=== PATIENT | female | born 1940 | race Caucasian/White ===

== ENCOUNTER 2016-05-13 19:19 | Inpatient (IN) | payer MEDICARE ==
[~2016-05-13] VITALS: Ht 170.2 cm; Wt 84.2 kg
[2016-05-13] VITALS (7 sets, daily range): BP systolic 81–107; BP diastolic 53–68; PULSE 82–94; RESP 18–20; TEMP 97.9; O2SAT 95–100
[~2016-05-13 19:19] MED LIST: ASPI81TA82 PO; ATOR40TA PO; DONE5TAB14 PO; LACT PO; MACR100C PO; NAME5TAB2 PO; PRIN5TAB PO; QUET100 PO
[2016-05-13] MEDS ORDERED: SODIUM CHLOR 0.9% 1000 ML INJ 1,000 ML IV ONE ×2 (19:25)
[2016-05-13] MEDS ORDERED: SERO100T PO (19:30)
[2016-05-13] MEDS ORDERED: ASPI81CH37 CHEW (19:30)
[2016-05-13] MEDS ORDERED: MELO7.5T4 PO (19:30)
[2016-05-13] MEDS ORDERED: ARIC10TA PO (19:30)
[2016-05-13] MEDS ORDERED: LISI-519 PO (19:30)
[2016-05-13] MEDS ORDERED: NAME10TA PO (19:30)
[2016-05-13] MEDS ORDERED: HYDR-3516 PO (19:30)
[2016-05-13] MEDS ORDERED: cefTRIAXone INJ 1,000 MG in SODIUM CHLORIDE 0.9% INJ 100 ML IV ONE (19:30)
[2016-05-13 19:47] LABS: AUTOMATED NEUTROPHIL # 4.7 TH/MM3 (1.8-7.7); BASOPHIL # 0.1 TH/MM3 (0-0.2); BASOPHIL % 1.1 % (0.0-2.0); EOSINOPHIL # 0.1 TH/MM3 (0-0.4); EOSINOPHIL % 1.6 % (0.0-4.0); HEMATOCRIT 37.4 % (35.0-46.0); HEMO FLAGS DIFF FINAL; LYMPH % 22.3 % (9.0-44.0); LYMPHOCYTE # 1.6 TH/MM3 (1.0-4.8); MEAN CELL VOLUME 81.3 FL (80.0-100.0); MEAN CORPUSCULAR HEMOGLOBIN 26.3 PG (27.0-34.0); MEAN CORPUSCULAR HGB CONC 32.4 % (32.0-36.0); MONO % 9.6 % (0.0-8.0); NEUT % 65.4 % (16.0-70.0); PLATELET COUNT 283 TH/MM3 (150-450); RED CELL DISTRIBUTION WIDTH 16.1 % (11.6-17.2); WHITE BLOOD COUNT 7.2 TH/MM3 (4.0-11.0)
[2016-05-13 19:59] LABS: BLOOD, URINE NEG (NEG); GLUCOSE,URINE NEG (NEG); KETONE, URINE NEG (NEG); NITRITE,URINE NEG (NEG); PH, URINE 5.5 (5.0-8.5)
[2016-05-13 20:04] LABS: CHLORIDE 106 MEQ/L (98-107); POTASSIUM 4.8 MEQ/L (3.5-5.1); SODIUM (NA) 142 MEQ/L (136-145)
[2016-05-13 20:07] LABS: ANION GAP 10 MEQ/L (5-15); BICARBONATE 26.3 MEQ/L (21.0-32.0); BLOOD UREA NITROGEN 28 MG/DL (7-18)
[2016-05-13 20:07] LABS: URINE COLOR YELLOW (YELLW/STRAW)
[2016-05-13 20:09] LABS: MUCUS URINE FEW /lpf (OCC)
[2016-05-13 20:10] LABS: ALT (GPT) 23 U/L (10-53); APTT (PATIENT) 23.8 SEC (24.3-30.1); AST (GOT) 25 U/L (15-37); PROTHROMBIN TIME - PATIENT 10.8 SEC (9.8-11.6)
[2016-05-13 20:10] LABS: BACTERIA, URINE FEW /hpf; COMMENT (UR) CATH-CULT NOT IND; CULTURE IF INDICATED CATH CULTURE NOT IND; RBC, URINE 0-3 /hpf (0-3); WBC, URINE 0-2 /hpf (0-5)
[2016-05-13 20:11] LABS: GLOMERULAR FILTRATION RATE 48 ML/MIN (>89)
[2016-05-13 20:12] LABS: TOTAL BILIRUBIN ADULT 0.2 MG/DL (0.2-1.0)
[2016-05-13 20:13] LABS: ALKALINE PHOSPHATASE 117 U/L (45-117)
--- NOTE | 2016-05-13 20:33 | RADHPO ---
EXAM DATE/TIME: 05/13/2016 20:11 [facility] COMPARISON: CHEST SINGLE AP, February 27, 2016, 14:58. INDICATIONS : Fever. MEDICAL HISTORY : Hypertension. SURGICAL HISTORY : None. ENCOUNTER: Initial ACUITY: 1 day PAIN SCORE: 0/10 LOCATION: Bilateral chest FINDINGS: There is linear atelectasis at the left lung base. Cardiomegaly is noted. No effusion or consolidatio n. Osseous structures are intact. CONCLUSION: Left basilar atelectasis. Feng Pollard MD on May 13, 2016 at 20:31 Board Certified Radiologist. This report was verified electronically.
[2016-05-13] MEDS ORDERED: AZITHROMYCIN INJ 500 MG in SODIUM CHLOR 0.9% 250 ML INJ 250 ML IV ONE (21:00)
--- NOTE | 2016-05-13 21:15 | PD ---
HPI Chief Complaint: General Weakness Time Seen by Provider: 19:24 Travel History International Travel<30 days: No Contact w/Intl Traveler<30days: No Traveled to known affect area: No History of Present Illness HPI Patient is a 75 year old female who comes in after a syncopal episode today. Per EMS her called when she came unresponsive while he was trying to help her out of the chair. She never fell or hit her head. EMS reports that her blood pressure was originally 72 over palp. Patient has dementia, and currently has no complaints. She is oriented to person himself, but does not know where she is. Her states that she seemed to be in her normal state of health until she suddenly went unresponsive tonight. He does describe an episode in February that was similar and she was found to have a urinary tract infection at that time. PFSH Past Medical History Hx Anticoagulant Therapy: Yes (81 MG ASA) Anxiety: No Depression: No Cardiovascular Problems: Yes (HTN) High Cholesterol: Yes Dementia: Yes Diminished Hearing: No Endocrine: No Genitourinary: No Hypertension: Yes Immune Disorder: No Musculoskeletal: No Neurologic: No Reproductive: No Respiratory: No Menopausal: Yes Past Surgical History Oral Surgery: Yes (TONSILLECTOMY) Other Surgery: Yes Social History Alcohol Use: Yes (WINE SOMETIMES) Tobacco Use: No (NEVER) Substance Use: No Allergies-Medications (Allergen,Severity, Reaction): Coded Allergies: No Known Allergies (Verified , 05/13/16) Reported Meds & Prescriptions Reported Meds & Active Scripts Active Reported Seroquel (Quetiapine Fumarate) 100 Mg Tab 100 Mg PO BID Hydrocodone-Acetaminophen 5-325 mg Tab 1 Tab PO TID PRN Meloxicam 7.5 Mg Tab 7.5 Mg PO BID Lisinopril 5 Mg Tab 5 Mg PO DAILY Aspirin Low Dose (Aspirin) 81 Mg Chew 81 Mg CHEW DAILY Namenda (Memantine) 10 Mg Tab 10 Mg PO BID Aricept (Donepezil) 10 Mg Tab 10 Mg PO HS Review of Systems ROS Limitations: Clinical Condition, Altered Mental Status Physical Exam Narrative GENERAL: Awake and alert, in no acute distress. SKIN: Warm and dry. HEAD: Atraumatic. Normocephalic. EYES: Pupils equal and round. No scleral icterus. Extraocular movements intact. ENT: Mucous membranes pink and moist. NECK: Trachea midline. No JVD. CARDIOVASCULAR: Regular rate and rhythm. No murmur appreciated. RESPIRATORY: No accessory muscle use. Clear to auscultation. Breath sounds equal bilaterally. GASTROINTESTINAL: Abdomen soft, non-tender, nondistended. MUSCULOSKELETAL: No obvious deformities. No clubbing. No cyanosis. No edema. NEUROLOGICAL: Awake and alert, oriented to person only. No obvious cranial nerve deficits. Motor grossly within normal limits. Normal speech. Data Data Last Documented VS Vital Signs Date Time Temp Pulse Resp B/P Pulse Ox O2 Delivery O2 Flow Rate FiO2 05/13/16 21:00 89 18 104/62 99 Nasal Cannula 2 05/13/16 19:25 97.9 Orders Electrocardiogram (05/13/16:25) Complete Blood Count With Diff (05/13/16:25) Comprehensive Metabolic Panel (05/13/16:25) Prothrombin Time / Inr (Pt) (05/13/16:25) Act Partial Throm Time (Ptt) (05/13/16 19:25) Lactic Acid Sepsis Protocol (05/13/16 19:25) Troponin I (05/13/16 19:25) Urinalysis - C+S If Indicated (05/13/16 19:25) Ua Includes Microscopic (05/13/16 19:25) Blood Culture (05/13/16 19:25) Chest, Single Ap (05/13/16:25) Blood Glucose (05/13/16 19:25) Ecg Monitoring (05/13/16 19:25) Iv Access Insert/Monitor (05/13/16 19:25) Oximetry (05/13/16 19:25) Oxygen Administration (05/13/16 19:25) Sodium Chlor 0.9% 1000 Ml Inj (Ns 1000 M (05/13/16 19:25) Sodium Chlor 0.9% 1000 Ml Inj (Ns 1000 M (05/13/16 19:25) Ceftriaxone Inj (Rocephin Inj) (05/13/16 19:30) Cath For Specimen (05/13/16 19:27) Azithromycin Inj (Zithromax Inj) (05/13/16 21:00) Admit Order (Ed Use Only) (05/13/16 ) Labs Laboratory Tests Test 05/13/16 05/13/16 05/13/16 19:25 19:35 19:40 White Blood Count 7.2 TH/MM3 Red Blood Count 4.60 MIL/MM3 Hemoglobin 12.1 GM/DL Hematocrit 37.4 % Mean Corpuscular Volume 81.3 FL Mean Corpuscular Hemoglobin 26.3 PG Mean Corpuscular Hemoglobin 32.4 % Concent Red Cell Distribution Width 16.1 % Platelet Count 283 TH/MM3 Mean Platelet Volume 8.0 FL Neutrophils (%) (Auto) 65.4 % Lymphocytes (%) (Auto) 22.3 % Monocytes (%) (Auto) 9.6 % Eosinophils (%) (Auto) 1.6 % Basophils (%) (Auto) 1.1 % Neutrophils # (Auto) 4.7 TH/MM3 Lymphocytes # (Auto) 1.6 TH/MM3 Monocytes # (Auto) 0.7 TH/MM3 Eosinophils # (Auto) 0.1 TH/MM3 Basophils # (Auto) 0.1 TH/MM3 CBC Comment DIFF FINAL Differential Comment Prothrombin Time 10.8 SEC Prothromb Time International 1.0 RATIO Ratio Activated Partial 23.8 SEC Thromboplast Time Sodium Level 142 MEQ/L Potassium Level 4.8 MEQ/L Chloride Level 106 MEQ/L Carbon Dioxide Level 26.3 MEQ/L Anion Gap 10 MEQ/L Blood Urea Nitrogen 28 MG/DL Creatinine 1.10 MG/DL Estimat Glomerular Filtration 48 ML/MIN Rate Random Glucose 97 MG/DL Lactic Acid Level 2.3 mmol/L Calcium Level 8.6 MG/DL Total Bilirubin 0.2 MG/DL Aspartate Amino Transf 25 U/L (AST/SGOT) Alanine Aminotransferase 23 U/L (ALT/SGPT) Alkaline Phosphatase 117 U/L Troponin I LESS THAN 0.02 NG/ML Total Protein 6.9 GM/DL Albumin 3.1 GM/DL Urine Color YELLOW Urine Turbidity CLEAR Urine pH 5.5 Urine Specific [place] 1.025 Urine Protein TRACE mg/dL Urine Glucose (UA) NEG mg/dL Urine Ketones NEG mg/dL Urine Occult Blood NEG Urine Nitrite NEG Urine Bilirubin NEG Urine Leukocyte Esterase NEG Urine RBC 0-3 /hpf Urine WBC 0-2 /hpf Urine Bacteria FEW /hpf Urine Hyaline Casts 6-9 /lpf Urine Fine Granular Casts 0-2 /lpf Urine Mucus FEW /lpf Microscopic Urinalysis Comment CATH-CULT NOT IND MDM Medical Decision Making Medical Screen Exam Complete: Yes Emergency Medical Condition: Yes Medical Record Reviewed: Yes Interpretation(s) ECG shows normal sinus rhythm at 85, occasional PVCs, no ST elevation or depression. Differential Diagnosis Urosepsis versus pneumonia versus syncope versus ACS Narrative Course Patient is a 75-year-old female who comes in after syncopal episode. Patient is demented and cannot provide history. She is immediately connected to the athletic monitor. Found to be hypotensive. 2 IVs established. Labs sent. Patient given 2 L of fluids. Started on Rocephin. Labs show a lactic acid of 2.3. Urinalysis concerning for some white blood cells and bacteria. X-ray shows atelectasis. Azithromycin added to cover for pneumonia as well. Patient's blood pressure responded to the fluids and improved. Patient will be admitted for further management. Diagnosis Primary Impression: Sepsis Qualified Code: A41.9 - Sepsis, due to unspecified organism Additional Impressions: Syncope Qualified Code: R55 - Syncope, unspecified syncope type Hypotension Qualified Code: I95.89 - Other specified hypotension Admitting Information Admitting Physician Requests: Admit Karo Edouard MD May 13, 2016 21:15 Karo Edouard MD May 13, 2016 21:15
[2016-05-13] MEDS ORDERED: NALOXONE HCL 0.4 MG/ML AMP IV PRN (21:30)
[2016-05-13] MEDS ORDERED: SODIUM CHLORIDE 0.9% FLUSH 5 ML FLUSH FLUSH PRN (21:30)
[2016-05-13] MEDS: SODIUM CHLOR 0.9% 1000 ML INJ 1,000 ML IV SCH (21:37)
[2016-05-13 21:41] LABS: LACTIC ACID GHOST NOT REPORTABLE
[2016-05-14] VITALS: BP 104/82; PULSE 83; PULSE 91; RESP 19; TEMP 96.8; O2SAT 97
[2016-05-14 02:20] LABS: CREATINE KINASE 51 U/L (26-192)
[2016-05-14 03:59] VITALS: BP_SYST 110; BP_SYST 123; BP_DIAS 67; BP_DIAS 72; PULSE 71; PULSE 76; RESP 16; RESP 18; TEMP 96.8; TEMP 97.5; O2SAT 92; O2SAT 96
[2016-05-14 06:39] LABS: AUTOMATED NEUTROPHIL # 5.1 TH/MM3 (1.8-7.7); BASOPHIL % 0.6 % (0.0-2.0); EOSINOPHIL # 0.1 TH/MM3 (0-0.4); EOSINOPHIL % 1.8 % (0.0-4.0); HEMATOCRIT 36.1 % (35.0-46.0); HEMO FLAGS DIFF FINAL; LYMPH % 23.9 % (9.0-44.0); LYMPHOCYTE # 1.8 TH/MM3 (1.0-4.8); MEAN CELL VOLUME 81.2 FL (80.0-100.0); MEAN CORPUSCULAR HEMOGLOBIN 26.3 PG (27.0-34.0); MEAN CORPUSCULAR HGB CONC 32.4 % (32.0-36.0); MONO % 8.5 % (0.0-8.0); NEUT % 65.2 % (16.0-70.0); PLATELET COUNT 276 TH/MM3 (150-450); RED BLOOD COUNT 4.45 MIL/MM3 (4.00-5.30); RED CELL DISTRIBUTION WIDTH 15.4 % (11.6-17.2); WHITE BLOOD COUNT 7.7 TH/MM3 (4.0-11.0)
[2016-05-14 07:18] LABS: BICARBONATE 23.8 MEQ/L (21.0-32.0); POTASSIUM 3.8 MEQ/L (3.5-5.1)
[2016-05-14] MEDS: SODIUM CHLOR 0.9% 1000 ML INJ 1,000 ML IV SCH (07:27)
[2016-05-14 08:00] VITALS: BP 152/80; PULSE 95; RESP 18; TEMP 97.5; O2SAT 99
[2016-05-14] MEDS ORDERED: SODIUM CHLORIDE 0.9% FLUSH 5 ML FLUSH FLUSH SCH (09:00)
[2016-05-14] MEDS ORDERED: cefTRIAXone INJ 1,000 MG in SODIUM CHLORIDE 0.9% INJ 100 ML IV SCH (09:00)
--- NOTE | 2016-05-14 09:12 | RADHPO ---
EXAM DATE/TIME: 05/14/2016 08:04 [facility] COMPARISON: No previous studies available for comparison. INDICATIONS : Syncope. MEDICAL HISTORY : Hypertension. Hypercholesterolemia. Dementia. Seizures. SURGICAL HISTORY : Tonsillectomy. ENCOUNTER: Initial ACUITY: 1 day PAIN SCORE: 0/10 LOCATION: Bilateral neck PEAK SYSTOLIC VELOCITIES (cm/sec): ICA/CCA RATIO: Right: 1.0 Left: 0.7 ICA: Right: 82 Left: 61 CCA: Right: 79 Left: 89 ECA: Right: 83 Left: 71 VERTEBRAL: Right: 42 antegrade Left: 49 antegrade Elevated flow velocities and ICA/CCA ratios have been found to correlate with increased degrees of vessel stenosis, calculated as percentage of diameter relative to a normal segment of distal ICA/CCA FINDINGS: RIGHT CAROTID: No significant stenosis is visualized. The waveforms are within normal limits. LEFT CAROTID: No significant stenosis is visualized. The waveforms are within normal limits. VERTEBRAL ARTERIES: Antegrade flow is seen in both vertebral arteries. MISCELLANEOUS: None. CONCLUSION: No acute disease. Minimal atherosclerosis is noted. Michelle Goldstein MD on May 14, 2016 at 9:09 Board Certified Radiologist. This report was verified electronically.
[2016-05-14 09:27] LABS: CREATINE KINASE 82 U/L (26-192)
[2016-05-14] MEDS ORDERED: ACETAMINOPHEN/HYDROcodone 325 MG/5 MG TAB PO PRN (11:00)
--- NOTE | 2016-05-14 11:07 | EKG ---
Date Performed: 05/14/2016 Time Performed: 07:34:44 PTAGE: 75 years EKG: Sinus rhythm with PVC(s) with borderline 1st degree A-V block. Left axis deviation rSr'(V1) - probable normal ethan iant Low QRS voltages in precordial leads Borderline ECG PREVIOUS TRACING : 05/14/2016 01.42 DOCTOR: Maico Syed Interpretating Date/Time 05/14/2016 11:05:43
--- NOTE | 2016-05-14 11:11 | HHI.HP ---
[facility] Josie Fern[facility] MD Admission Diagnosis Hypotension, sepsis, syncope Diagnoses: Chief Complaint: Altered mental status Travel History International Travel<30 Days: No Contact w/Intl Traveler <30 Da: No Traveled to Known Affected Are: No History of Present Illness This patient is a 75-year-old female with evaluated for altered mental status in the emergency room.Her is at the bedside says that they were watching TV and she sort of passed out on the sofa. After he was unable to awaken her a call 911 her blood pressure was running quite low. Patient has not been eating well and has been not drinking well. She was brought to the emergency room and given IV hydration which improved her blood pressure and her mental status quite remarkably. Patient also was quite constipated. She has since had a very large bowel movement and then quite back to her baseline per her . She did have urinalysis was unremarkable as well as carotid ultrasounds which were unremarkable. X-ray does show some early signs of possible pneumonia and the patient was given IV antibiotics. Patient has not had any fevers or chills. And has had minimal rhinorrhea. This time the patient is remarkably recovered from her initial issue and her Antunez feels she is back to her baseline and would like to take her home. Given the patient's wonderful recovery and this is not unreasonable. Review of Systems Constitutional: DENIES: Diaphoretic episodes, Fatigue, Fever, Weight gain, Weight loss, Chills, Dizziness, Change in appetite, Night Sweats Endocrine: DENIES: Abnorml menstrual pattern, Heat/cold intolerance, Polydipsia , Polyuria, Polyphagia Eyes: DENIES: Blurred vision, Diplopia, Eye inflammation, Eye pain, Vision loss , Photosensitivity, Double Vision Ears, nose, mouth, throat: DENIES: Tinnitus, Hearing loss, Vertigo, Nasal discharge, Oral lesions, Throat pain, Hoarseness, Ear Pain, Running Nose, Epistaxis, Sinus Pain, Toothache, Odynophagia Respiratory: DENIES: Apneas, Cough, Snoring, Wheezing, Hemoptysis, Sputum production, Shortness of breath Cardiovascular: DENIES: Chest pain, Palpitations, Syncope, Dyspnea on Exertion , PND, Lower Extremity Edema, Orthopnea, Claudication Gastrointestinal: DENIES: Abdominal pain, Black stools, Bloody stools, Constipation, Diarrhea, Nausea, Vomiting, Difficulty Swallowing, Anorexia Genitourinary: DENIES: Abnormal vaginal bleeding, Dysmenorrhea, Dyspareunia, Sexual dysfunction, Urinary frequency, Urinary incontinence, Urgency, Hematuria , Dysuria, Nocturia, Vaginal discharge Musculoskeletal: DENIES: Joint pain, Muscle aches, Stiffness, Joint Swelling, Back pain, Neck pain Integumentary: DENIES: Abnormal pigmentation, Pruritus, Rash, Nail changes, Breast masses, Breast skin changes, Nipple discharge Hematologic/lymphatic: DENIES: Bruising, Lymphadenopathy Immunologic/allergic: DENIES: Eczema, Urticaria Neurologic: DENIES: Abnormal gait, Headache, Localized weakness, Paresthesias, Seizures, Speech Problems, Tremor, Poor Balance Psychiatric: DENIES: Anxiety, Confusion, Mood changes, Depression, Hallucinations, Agitation, Suicidal Ideation, Homicidal Ideation, Delusions Past Family Social History Past Medical History Dementia Hypertension Chronic pain Past Surgical History Tonsillectomy Reported Medications Reviewed in the medical record, nothing new Allergies: Coded Allergies: No Known Allergies (Verified , 05/13/16) Active Ordered Medications Reviewed in the medical record Family History Patient does not know her family history due to dementia Social History Lives with her , no tobacco or alcohol dependency Physical Exam Vital Signs Vital Signs Date Time Temp Pulse Resp B/P Pulse Ox O2 Delivery O2 Flow Rate FiO2 05/14/16 08:00 97.5 95 18 152/80 99 05/14/16 03:59 97.5 76 18 123/72 92 05/14/16 00:00 96.8 91 19 104/82 97 05/14/16 00:00 83 05/13/16 23:46 88 18 104/68 100 Room Air 05/13/16 22:00 94 18 100 Nasal Cannula 2 05/13/16 21:30 94 18 102/62 100 Nasal Cannula 2 05/13/16 21:00 89 18 104/62 99 Nasal Cannula 2 05/13/16 20:32 88 18 107/58 98 05/13/16 20:06 98 Nasal Cannula 2 05/13/16 19:55 86 20 81/53 97 05/13/16 19:47 97 05/13/16 19:25 97.9 82 20 97/56 95 Physical Exam GENERAL: This is a well-nourished, well-developed patient, in no apparent distress. SKIN: No rashes, ecchymoses or lesions. Cool and dry. HEAD: Atraumatic. Normocephalic. No temporal or scalp tenderness. EYES: Pupils equal round and reactive. Extraocular motions intact. No scleral icterus. No injection or drainage. ENT: Nose without bleeding, purulent drainage or septal hematoma. Throat without erythema, tonsillar hypertrophy or exudate. Uvula midline. Airway patent. NECK: Trachea midline. No JVD or lymphadenopathy. Supple, nontender, no meningeal signs. CARDIOVASCULAR: Regular rate and rhythm without murmurs, gallops, or rubs. RESPIRATORY: Clear to auscultation. Breath sounds equal bilaterally. No wheezes , rales, or rhonchi. GASTROINTESTINAL: Abdomen soft, non-tender, nondistended. No hepato-splenomegaly , or palpable masses. No guarding. MUSCULOSKELETAL: Extremities without clubbing, cyanosis, or edema. No joint tenderness, effusion, or edema noted. No calf tenderness. Negative Homans sign bilaterally. NEUROLOGICAL: Awake and alert. Mildly confused. Cranial nerves II through XII intact. Motor and sensory grossly within normal limits. Five out of 5 muscle strength in all muscle groups. Normal speech. Laboratory Laboratory Tests Test 05/13/16 05/13/16 05/13/16 05/13/16 19:25 19:35 19:40 21:50 White Blood Count 7.2 Red Blood Count 4.60 Hemoglobin 12.1 Hematocrit 37.4 Mean Corpuscular Volume 81.3 Mean Corpuscular Hemoglobin 26.3 Mean Corpuscular Hemoglobin 32.4 Concent Red Cell Distribution Width 16.1 Platelet Count 283 Mean Platelet Volume 8.0 Neutrophils (%) (Auto) 65.4 Lymphocytes (%) (Auto) 22.3 Monocytes (%) (Auto) 9.6 Eosinophils (%) (Auto) 1.6 Basophils (%) (Auto) 1.1 Neutrophils # (Auto) 4.7 Lymphocytes # (Auto) 1.6 Monocytes # (Auto) 0.7 Eosinophils # (Auto) 0.1 Basophils # (Auto) 0.1 CBC Comment DIFF FINAL Differential Comment Prothrombin Time 10.8 Prothromb Time International 1.0 Ratio Activated Partial 23.8 Thromboplast Time Sodium Level 142 Potassium Level 4.8 Chloride Level 106 Carbon Dioxide Level 26.3 Anion Gap 10 Blood Urea Nitrogen 28 Creatinine 1.10 Estimat Glomerular Filtration 48 Rate Random Glucose 97 Lactic Acid Level 2.3 1.6 Calcium Level 8.6 Total Bilirubin 0.2 Aspartate Amino Transf 25 (AST/SGOT) Alanine Aminotransferase 23 (ALT/SGPT) Alkaline Phosphatase 117 Troponin I LESS THAN 0.02 Total Protein 6.9 Albumin 3.1 Urine Color YELLOW Urine Turbidity CLEAR Urine pH 5.5 Urine Specific [place] 1.025 Urine Protein TRACE Urine Glucose (UA) NEG Urine Ketones NEG Urine Occult Blood NEG Urine Nitrite NEG Urine Bilirubin NEG Urine Leukocyte Esterase NEG Urine RBC 0-3 Urine WBC 0-2 Urine Bacteria FEW Urine Hyaline Casts 6-9 Urine Fine Granular Casts 0-2 Urine Mucus FEW Microscopic Urinalysis Comment CATH-CULT NOT IND Test 05/14/16 05/14/16 05/14/16 01:35 05:15 07:30 Total Creatine Kinase 51 82 Troponin I LESS THAN 0.02 LESS THAN 0.02 White Blood Count 7.7 Red Blood Count 4.45 Hemoglobin 11.7 Hematocrit 36.1 Mean Corpuscular Volume 81.2 Mean Corpuscular Hemoglobin 26.3 Mean Corpuscular Hemoglobin 32.4 Concent Red Cell Distribution Width 15.4 Platelet Count 276 Mean Platelet Volume 8.6 Neutrophils (%) (Auto) 65.2 Lymphocytes (%) (Auto) 23.9 Monocytes (%) (Auto) 8.5 Eosinophils (%) (Auto) 1.8 Basophils (%) (Auto) 0.6 Neutrophils # (Auto) 5.1 Lymphocytes # (Auto) 1.8 Monocytes # (Auto) 0.7 Eosinophils # (Auto) 0.1 Basophils # (Auto) 0.0 CBC Comment DIFF FINAL Differential Comment Sodium Level 145 Potassium Level 3.8 Chloride Level 112 Carbon Dioxide Level 23.8 Anion Gap 9 Blood Urea Nitrogen 21 Creatinine 0.86 Estimat Glomerular Filtration 64 Rate Random Glucose 91 Calcium Level 8.1 Date/Time Procedure Status Source Growth 05/13/16 19:35 Aerobic Blood Culture Received Blood Peripheral Pending 05/13/16 19:35 Anaerobic Blood Culture Received Blood Peripheral Pending Result Diagram: 05/14/1615 05/14/16 0515 Imaging Last Impressions Carotid Artery Ultrasound 05/14/16 0000 Signed Impressions: Service Date/Time: Saturday, May 14, 2016 08:04 - CONCLUSION: No acute disease. Minimal atherosclerosis is noted. Michelle Goldstein MD Chest X-Ray 05/13/165 Signed Impressions: Service Date/Time: Friday, May 13, 2016 20:11 - CONCLUSION: Left basilar atelectasis. Feng Pollard MD Assessment and Plan Problem List: (1) Syncope ICD Code: R55 Status: Acute Plan: Likely due to hypotension from poor oral intake. Improved after adequate hydration (2) Hypotension ICD Code: I95.9 Status: Acute Plan: Resolved after hydration. Continue home medications for blood pressure (3) Dementia with behavioral problem ICD Code: F03.91 Status: Acute Plan: Resume home dementia medicines and Seroquel. Assessment and Plan I reviewed the chest x-ray the patient does appear to have early signs of pneumonia which will need to be treated with antibiotics as an outpatient Discharge home Activity unrestricted Diet regular Follow-up with primary care doctor 1 week Discussed Condition With Patient, spouse, RN and case management Problem Qualifiers (1) Syncope: Qualified Code: R55 - Syncope, unspecified syncope type (2) Hypotension: Qualified Code: I95.89 - Other specified hypotension Alisia Pineda MD May 14, 2016 11:11
[2016-05-14] MEDS ORDERED: LEVA500T PO (11:14)
--- NOTE | 2016-05-14 11:15 | HHI.DCPOC ---
Discharge Care Plan Diagnosis: (1) Hypotension Goals to Promote Your Health * To prevent worsening of your condition and complications * To maintain your health at the optimal level Directions to Meet Your Goals Take your medications as prescribed Follow your dietary instruction Follow activity as directed Keep your appointments as scheduled Take your immunizations and boosters as scheduled If your symptoms worsen call your PCP, if no PCP go to Urgent Care Center or Emergency Room Smoking is Dangerous to Your Health. Avoid second hand smoke Call the 24-hour hour crisis hotline for domestic abuse at Alisia Pineda MD May 14, 2016 11:14
[2016-05-14] MEDS ORDERED: QUEtiapine FUMARATE 100 MG TAB PO SCH (12:00)
--- NOTE | 2016-05-14 13:42 | EC ---
Study Study Date:05/14/2016 STUDY CONCLUSIONS SUMMARY - Procedure narrative: Transthoracic echocardiography. Image quality was fair. Scanning was performed from the parasternal, apical, and subcostal acoustic windows. - Left ventricle: The cavity size was normal. Systolic function was normal. The estimated ejection fraction was in the range of 55% to 60%. If LV function is below 40, please consider prescribing an ACEI or ARB or document rationale for non-use. PROCEDURE DATA STUDY STATUS: Elective. Procedure: Transthoracic echocardiography. Image quality was fair. Scanning was performed from the parasternal, apical, and subcostal acoustic windows. Study completion: The patient tolerated the procedure well. Transthoracic echocardiography. M-mode, complete 2D, complete spectral Doppler, and color Doppler. Patient status: Inpatient. CARDIAC ANATOMY LEFT VENTRICLE: The cavity size was normal. Systolic function was normal. The estimated ejection fraction was in the range of 55% to 60%. Images were inadequate for LV wall motion assessment. AORTIC VALVE: The valve appears to be grossly normal. Doppler: There was no stenosis. Trace to mild regurgitation. Valve area: 1.96cm^2 (Vmax). MITRAL VALVE: Not well visualized. Doppler: There was no evidence for stenosis. No significant regurgitation. Peak gradient: 3mm Hg (D). PULMONIC VALVE: Not well visualized. TRICUSPID VALVE: Not well visualized. Doppler: There was no evidence for stenosis. No significant regurgitation. PERICARDIUM: Not well visualized. BASIC MEASUREMENTS ADULT Normal Left ventricle LV internal dimension, ED, chordal level, *42.6 mm 43-52 PLAX LV internal dimension, ES, chordal level, 31.8 mm 23-38 PLAX Fractional shortening, chordal level, PLAX *25 % >29 LV posterior wall thickness, ED 8.44 mm IVS/LVPW ratio, ED 0.92 <1.3 Ventricular septum Septal thickness, ED 7.78 mm Aortic valve Leaflet separation 17 mm 15-26 BASIC MEASUREMENTS ADULT Normal Aortic valve Leaflet separation 17 mm 15-26 Aorta Root diameter, ED 28 mm 20-37 Left atrium Anterior-posterior dimension, ES *42 mm 19-40 LA/aortic root ratio 1.5 DOPPLER MEASUREMENTS ADULT Normal Aortic valve Peak velocity, S 147 cm/s Valve area, Vmax 1.96 cm^2 Regurgitant velocity, ED 308 cm/s Regurgitant deceleration 2020 cm/s^2 Regurgitant pressure half-time 448 ms Regurgitant gradient, ED 38 mm Hg Mitral valve Peak E-wave velocity 91.3 cm/s Deceleration time *127 ms 150-230 Peak gradient, D 3 mm Hg Pulmonic valve Peak velocity, S 85.5 cm/s LEGEND: Mean values are shown as u=mean value. Asterisk (*) renteria values outside specified normal range. Prepared and signed by Sukumar Cagle [id number]
[2016-05-14] MEDS ORDERED: DONEPEZIL HCL 5 MG TAB PO SCH (21:00)
[2016-05-14] MEDS ORDERED: MEMANTINE HCL 10 MG TAB PO SCH (21:00)
[2016-05-14] MEDS ORDERED: MELOXICAM 7.5 MG TAB PO SCH (21:00)
[2016-05-14] MEDS ORDERED: AZITHROMYCIN INJ 500 MG in SODIUM CHLOR 0.9% 250 ML INJ 250 ML IV SCH (22:00)
--- NOTE | 2016-05-14 22:29 | EKG ---
Date Performed: 05/14/2016 Time Performed: 01:42:06 PTAGE: 75 years EKG: Sinus rhythm with PVC Left axis deviation Low QRS voltages in precordial leads Abnormal ECG PREVIOUS TRACING : 05/13/2016 19.41 DOCTOR: Maico Syed Interpretating Date/Time 05/14/2016 22:27:05
--- NOTE | 2016-05-14 22:36 | EKG ---
Date Performed: 05/13/2016 Time Performed: 19:41:34 PTAGE: 75 years EKG: Sinus rhythm with PVC(s) with borderline 1st degree A-V block Left axis deviation rSr'(V1) - probable normal vari ant Low QRS voltages in precordial leads Abnormal ECG PREVIOUS TRACING : 02/27/2016 15.24 Compared to prior tracing no significant change DOCTOR: Maico Syed Interpretating Date/Time 05/14/2016 22:33:31
[2016-05-15] MEDS ORDERED: LISINOPRIL 5 MG TAB PO SCH (09:00)
[2016-05-15] MEDS ORDERED: ASPIRIN 81 MG CHEW TAB CHEW SCH (09:00)
== END 2016-05-14 12:52 | disposition home or self-care (01) | DRG 314 ==
LOC: PHED 19:19 → PHEDA 21:26 → PH3A 23:39
PROVIDERS: ADMIT Hospitalist; ATTEND Hospitalist
DX: I95.9 Hypotension, unspecified (principal); J18.9 Pneumonia, unspecified organism; F03.91 Unspecified dementia, unspecified severity, with behavioral disturbance; J98.11 Atelectasis; R55 Syncope and collapse; K59.00 Constipation, unspecified; R41.82 Altered mental status, unspecified; I10 Essential (primary) hypertension; G89.29 Other chronic pain
CPT/HCPCS: 71010; 80048; 80053; 81001; 82550; 83605; 84484; 85025; 85610; 85730; 87040; 93005; 93306; 93880; 96361; 96365; 96367; J0456; J0696; J7030; J7050; P9612

== ENCOUNTER → 2016-07-25 | Outpatient (CLI) | payer MEDICARE ==
[~2016-07-25] MED LIST changes: +ARIC10TA PO; +ASPI81CH37 CHEW; -ASPI81TA82 PO; -ATOR40TA PO; -DONE5TAB14 PO; +HYDR-3516 PO; -LACT PO; +LEVA500T PO; +LISI-519 PO; -MACR100C PO; +MELO7.5T4 PO; +NAME10TA PO; -NAME5TAB2 PO; -PRIN5TAB PO; -QUET100 PO; +SERO100T PO
[2016-07-25 11:16] LABS: AUTOMATED NEUTROPHIL # 3.1 TH/MM3 (1.8-7.7); BASOPHIL % 0.7 % (0.0-2.0); EOSINOPHIL # 0.1 TH/MM3 (0-0.4); EOSINOPHIL % 1.9 % (0.0-4.0); HEMATOCRIT 39.4 % (35.0-46.0); HEMO FLAGS DIFF FINAL; LYMPH % 31.4 % (9.0-44.0); LYMPHOCYTE # 1.8 TH/MM3 (1.0-4.8); MEAN CELL VOLUME 80.6 FL (80.0-100.0); MEAN CORPUSCULAR HEMOGLOBIN 25.7 PG (27.0-34.0); MEAN CORPUSCULAR HGB CONC 31.8 % (32.0-36.0); MONO % 12.1 % (0.0-8.0); NEUT % 53.9 % (16.0-70.0); PLATELET COUNT 232 TH/MM3 (150-450); RED BLOOD COUNT 4.88 MIL/MM3 (4.00-5.30); RED CELL DISTRIBUTION WIDTH 15.5 % (11.6-17.2); WHITE BLOOD COUNT 5.8 TH/MM3 (4.0-11.0)
[2016-07-25 11:47] LABS: ANION GAP 6 MEQ/L (5-15); AST (GOT) 23 U/L (15-37); BICARBONATE 28.3 MEQ/L (21.0-32.0); BLOOD UREA NITROGEN 23 MG/DL (7-18); CHLORIDE 107 MEQ/L (98-107); GLOMERULAR FILTRATION RATE 62 ML/MIN (>89); GLUCOSE,FASTING 71 MG/DL (74-99); POTASSIUM 4.4 MEQ/L (3.5-5.1); SODIUM (NA) 141 MEQ/L (136-145)
[2016-07-25 11:58] LABS: ALKALINE PHOSPHATASE 89 U/L (45-117); ALT (GPT) 20 U/L (10-53); TOTAL BILIRUBIN ADULT 0.4 MG/DL (0.2-1.0)
== END ==
LOC: PLAB 08:32
PROVIDERS: ATTEND Family Medicine
DX: F03.90 Unspecified dementia, unspecified severity, without behavioral disturbance, psychotic disturbance, mood disturbance, and anxiety (principal); I11.9 Hypertensive heart disease without heart failure; R53.81 Other malaise; N39.0 Urinary tract infection, site not specified; Z13.29 Encounter for screening for other suspected endocrine disorder
CPT/HCPCS: 36415; 80053; 84443; 85025

== ENCOUNTER 2016-10-02 07:58 | Emergency (ER) | payer MEDICARE ==
[2016-10-02 08:02] VITALS: BP 164/80; PULSE 72; RESP 16; TEMP 98.6; O2SAT 100
--- NOTE | 2016-10-02 08:21 | PD ---
HPI Chief Complaint: Back/ Neck Pain or Injury Time Seen by Provider: 08:09 Travel History International Travel<30 days: No Contact w/Intl Traveler<30days: No Traveled to known affect area: No History of Present Illness HPI This 76-year-old female is brought by ambulance because of pain. History is obtained from her . The patient has a history of Alzheimer's disease she has paperwork indicating that she has a history of degenerative disease of the back as well as spinal stenosis. Her says that she had a fall on Thursday. He says it was not a bad fall and fell against the wall and kind of slipped to the ground. She has been complaining of some pain in the left hip and pelvic area since that fall. He says that since that fall he sees been using the wheelchair more. He cares for at home that she sometimes uses a walker but most of the time uses a wheelchair. PFSH Past Medical History Hx Anticoagulant Therapy: Yes (81 MG ASA) Anxiety: No Depression: No Cancer: No Cardiovascular Problems: Yes (HTN) High Cholesterol: Yes Dementia: Yes Diminished Hearing: No Endocrine: No Gastrointestinal Disorders: No Genitourinary: No Hypertension: Yes Immune Disorder: No Implanted Vascular Access Dvce: No Musculoskeletal: No Neurologic: No Psychiatric: Yes (dementia) Reproductive: No Respiratory: No ?: Not Menopausal: Yes Past Surgical History Oral Surgery: Yes (TONSILLECTOMY) Other Surgery: Yes Social History Alcohol Use: Yes (WINE SOMETIMES) Tobacco Use: No (NEVER) Substance Use: No Allergies-Medications (Allergen,Severity, Reaction): Coded Allergies: No Known Allergies (Verified , 05/13/16) Reported Meds & Prescriptions Reported Meds & Active Scripts Active Reported Seroquel (Quetiapine Fumarate) 100 Mg Tab 100 Mg PO BID Hydrocodone-Acetaminophen 5-325 mg Tab 1 Tab PO TID PRN Meloxicam 7.5 Mg Tab 7.5 Mg PO BID Lisinopril 5 Mg Tab 5 Mg PO DAILY Aspirin Low Dose (Aspirin) 81 Mg Chew 81 Mg CHEW DAILY Namenda (Memantine) 10 Mg Tab 10 Mg PO BID Aricept (Donepezil) 10 Mg Tab 10 Mg PO HS Review of Systems ROS Limitations: Altered Mental Status, Poor Historian General / Constitutional: No: Fever Musculoskeletal: Positive: Myalgias, Pain Hematologic/Lymphatic: No: Easy Bruising Physical Exam Narrative GENERAL: Well-developed female SKIN: Focused skin assessment warm/dry. HEAD: Atraumatic. Normocephalic. EYES: Pupils equal and round. No scleral icterus. No injection or drainage. ENT: No nasal bleeding or discharge. Mucous membranes pink and moist. NECK: Trachea midline. No JVD. CARDIOVASCULAR: Regular rate and rhythm. No murmur appreciated. RESPIRATORY: No accessory muscle use. Clear to auscultation. Breath sounds equal bilaterally. GASTROINTESTINAL: Abdomen soft, non-tender, nondistended. Hepatic and splenic margins not palpable. MUSCULOSKELETAL: No obvious deformities. No clubbing. No cyanosis. No edema. There is really no tenderness of the lower back. She has some tenderness in the left inguinal area. I'm able to flex and extend at the hip without much discomfort. She does complain of some pain with rotation of the hip. Distal pulses are intact. Sensation is intact. NEUROLOGICAL: Awake and alert. No obvious cranial nerve deficits. Motor grossly within normal limits. Normal speech. PSYCHIATRIC: Appropriate mood and affect; insight and judgment normal. Data Data Last Documented VS Vital Signs Date Time Temp Pulse Resp B/P Pulse Ox O2 Delivery O2 Flow Rate FiO2 10/02/16 08:11 72 18 10/02/16 08:02 98.6 164/80 100 Orders Hip, Uni(Ap&Lat) W Ap Pelvis (10/02/16 08:15) [facility] Medical Decision Making Medical Screen Exam Complete: Yes Emergency Medical Condition: Yes Medical Record Reviewed: Yes Differential Diagnosis Differential includes pelvic fracture, hip fracture, contusion Narrative Course X-ray shows inferior pubic ramus fracture on the left and possible left sacral alar fracture. Findings are been discussed with the patient and her . Her does have a wheelchair at home and wishes to take her home. She is currently taking Lortab twice a day. I told him he can increase it to 3-4 times a day. They will follow-up with Dr. Romero. Diagnosis Primary Impression: Pelvis fracture Qualified Code: S32.502A - Closed nondisplaced fracture of left pubis, initial encounter Additional Instructions: Increase her Lortab to 3-4 times per day Disposition: 01 DISCHARGE HOME Condition: Stable Bolivar Cruz MD Oct 02, 2016 08:21
--- NOTE | 2016-10-02 09:20 | RADHPO ---
EXAM DATE/TIME: 10/02/2016 08:30 [facility] COMPARISON: No previous studies available for comparison. INDICATIONS : Fall, left hip pain per patients . MEDICAL HISTORY : None. SURGICAL HISTORY : None. ENCOUNTER: Initial ACUITY: 1 day PAIN SCORE: 2/10 LOCATION: Left hip FINDINGS: 3 views of the left hip and pelvis. There is minimal cortical irregularity at inferior pubic ramus on the left indicating a likely fracture. Possible left sacral ala fracture also seen. Proximal left fe mur are intact. No evidence of joint narrowing. CONCLUSION: Likely inferior pubic ramus fracture on the left and possible left sacral ala fracture. Pattern would suggest insufficiency fractures. Hima Lo MD on October 02, 2016 at 9:16 Board Certified Radiologist. This report was verified electronically.
[2016-10-02] MEDS ORDERED: ACETAMINOPHEN/HYDROcodone 325 MG/5 MG TAB PO ONE (09:45)
[2016-10-02] MEDS ORDERED: ACETAMINOPHEN 325 MG TAB PO ONE (09:45)
[2016-10-02 10:11] VITALS: BP 143/83
== END 2016-10-02 10:23 | disposition home or self-care (01) ==
LOC: PHED 07:58
DX: S32.592A Other specified fracture of left pubis, initial encounter for closed fracture (principal); W19.XXXA Unspecified fall, initial encounter
CPT/HCPCS: 73502; 99283

== ENCOUNTER 2017-05-31 13:05 | Inpatient (IN) | payer MEDICARE, OTHER ==
[~2017-05-31] VITALS: Ht 172.7 cm; Wt 72.1 kg
[2017-05-31] VITALS (15 sets, daily range): BP systolic 78–113; BP diastolic 46–63; PULSE 87–106; RESP 16–22; TEMP 96.2–98.3; O2SAT 86–100
[~2017-05-31 13:05] MED LIST changes: -ASPI81CH37 CHEW; +ASPI81CH6 CHEW; -LEVA500T PO; +MELO7.5T27 PO; -MELO7.5T4 PO
[2017-05-31] MEDS ORDERED: SODIUM CHLOR 0.9% 1000 ML INJ 1,000 ML IV ONE ×2 (13:30)
[2017-05-31] MEDS ORDERED: cefTRIAXone INJ 2,000 MG in SODIUM CHLORIDE 0.9% INJ 100 ML IV ONE (14:00)
[2017-05-31 14:01] LABS: BACTERIA, URINE MANY /hpf; BILIRUBIN, URINE NEG (NEG); BLOOD, URINE NEG (NEG); GLUCOSE,URINE NEG (NEG); HYALINE CAST, URINE 28 /lpf (RARE); KETONE, URINE NEG (NEG); MUCUS URINE MANY /lpf (OCC); NITRITE,URINE NEG (NEG); PH, URINE 5.5 (5.0-8.5); SQUAMOUS EPITHELIAL CELL URINE 4 /hpf (0-5); URINE COLOR YELLOW (YELLW/STRAW); URINE LEUKOCYTE ESTERASE NEG (NEG)
[2017-05-31 14:03] LABS: AUTOMATED NEUTROPHIL # 4.5 TH/MM3 (1.8-7.7); BASOPHIL % 0.5 % (0.0-2.0); EOSINOPHIL % 0.4 % (0.0-4.0); HEMOGLOBIN 9.5 GM/DL (11.6-15.3); LYMPHOCYTE # 1.3 TH/MM3 (1.0-4.8); MEAN CELL VOLUME 80.2 FL (80.0-100.0); MEAN CORPUSCULAR HEMOGLOBIN 25.4 PG (27.0-34.0); MEAN CORPUSCULAR HGB CONC 31.7 % (32.0-36.0); MEAN PLATELET VOLUME 8.8 FL (7.0-11.0); MONO % 12.1 % (0.0-8.0); MONOCYTE # 0.8 TH/MM3 (0-0.9); PLATELET COUNT 266 TH/MM3 (150-450); RED BLOOD COUNT 3.74 MIL/MM3 (4.00-5.30); RED CELL DISTRIBUTION WIDTH 15.3 % (11.6-17.2); WHITE BLOOD COUNT 6.6 TH/MM3 (4.0-11.0)
[2017-05-31 14:11] LABS: LACTIC ACID SEPSIS PROTOCOL 3.1 mmol/L (0.4-2.0)
[2017-05-31] MEDS ORDERED: AZITHROMYCIN INJ 500 MG in SODIUM CHLOR 0.9% 250 ML INJ 250 ML IV ONE (14:15)
[2017-05-31 14:17] LABS: ALBUMIN 2.4 GM/DL (3.4-5.0); ALT (GPT) 17 U/L (10-53); AST (GOT) 44 U/L (15-37); BICARBONATE 21.4 MEQ/L (21.0-32.0); BLOOD UREA NITROGEN 42 MG/DL (7-18); CHLORIDE 110 MEQ/L (98-107); CREATININE 1.76 MG/DL (0.50-1.00); GLOMERULAR FILTRATION RATE 28 ML/MIN (>89); GLUCOSE,RANDOM 135 MG/DL (74-106); SODIUM (NA) 142 MEQ/L (136-145)
[2017-05-31] MEDS ORDERED: ARIC10TA9 PO (14:17)
[2017-05-31] MEDS ORDERED: NAPR500T2 PO (14:17)
[2017-05-31] MEDS ORDERED: NAME10TA PO (14:17)
[2017-05-31] MEDS ORDERED: LISI-519 PO (14:17)
[2017-05-31] MEDS ORDERED: QUET1TAB8 PO (14:17)
[2017-05-31] MEDS ORDERED: ASPI1TAB57 PO (14:17)
[2017-05-31 14:19] LABS: ALKALINE PHOSPHATASE 161 U/L (45-117); TOTAL BILIRUBIN ADULT 0.3 MG/DL (0.2-1.0); TOTAL PROTEIN 5.9 GM/DL (6.4-8.2)
--- NOTE | 2017-05-31 14:29 | RADRPT ---
EXAM DATE/TIME: 05/31/2017 13:43 [facility] COMPARISON: No previous studies available for comparison. INDICATIONS : Shortness of breath. MEDICAL HISTORY : N/A SURGICAL HISTORY : N/A ENCOUNTER: Initial ACUITY: 1 day PAIN SCORE: Non-responsive. LOCATION: Bilateral chest FINDINGS: Single AP view of the chest. Right subclavian central venous catheter in place with the tip at the ca voatrial junction. Moderate-sized area right lower lobe consolidation versus atelectasis. Cardiac andrzej houette mild prominent. Left lung clear. No evidence of pleural effusion or pneumothorax. CONCLUSION: 1. Right lower lobe moderate-sized area of consolidation versus atelectasis. 2. Right subclavian central venous catheter in place. Hima Lo MD on May 31, 2017 at 14:25 Board Certified Radiologist. This report was verified electronically.
[2017-05-31] MEDS ORDERED: ONDANSETRON HCL 4 MG/2 ML VIAL IV PUSH ONE (14:30)
--- NOTE | 2017-05-31 14:42 | PD ---
HPI . Near syncope Chief Complaint: Syncope/Near-Syncope Time Seen by Provider: 13:19 Travel History International Travel<30 days: No Contact w/Intl Traveler<30days: No Traveled to known affect area: No History of Present Illness HPI This is an Alzheimer's patient who lives at home with her elderly who presents to us with the chief complaint of near syncope. She is unable to give us any further history. We have communicated with her by phone he reports that she has been having black tarry stools. [facility] Past Medical History Narrative Medical Dementia and high cholesterol Medical History: Unable to Obtain Alzheimer's Disease: Yes High Cholesterol: Yes Hypertension: Yes Medical other: Yes (spinal stenosis) Tetanus Vaccination: Unknown Influenza Vaccination: Yes Past Surgical History Tonsillectomy: Yes Social History Alcohol Use: No Tobacco Use: No Substance Use: No Allergies-Medications (Allergen,Severity, Reaction): Coded Allergies: No Known Allergies (Unverified , 05/31/17) Reported Meds & Prescriptions Reported Meds & Active Scripts Active Reported Aspirin 81 (Aspirin) 81 Mg Tabdr 81 Mg PO DAILY Quetiapine (Quetiapine Fumarate) 100 Mg Tab 100 Mg PO BID Lisinopril 5 Mg Tab 5 Mg PO DAILY Aricept (Donepezil HCl) 10 Mg Tablet 1 Tab PO DAILY Naproxen 500 Mg Tab 500 Mg PO BID Namenda (Memantine) 10 Mg Tab 10 Mg PO DAILY Review of Systems ROS Limitations: Poor Historian Physical Exam Narrative GENERAL: Acutely ill-appearing woman who presents with a systolic blood pressure of 60. SKIN: Pale. Dry. Cool to the touch. HEAD: Normocephalic. Atraumatic. EYES: Pupils equal and round. No scleral icterus. No injection or drainage. ENT: No nasal bleeding or discharge. Mucous membranes pink and moist. NECK: Trachea midline. Full range of motion without pain.. CARDIOVASCULAR: Regular rate and rhythm. Heart sounds are normal. RESPIRATORY: No accessory muscle use. Clear anteriorly. Breath sounds equal bilaterally. Wet sounding cough. GASTROINTESTINAL: Abdomen soft. Nontender. Bowel sounds present. Nondistended. : Normal female. Valdovinos catheter was placed and is draining cloudy urine. MUSCULOSKELETAL: No obvious deformities. NEUROLOGICAL: Confused. Awake and alert. No obvious cranial nerve deficits. Motor grossly within normal limits. PSYCHIATRIC: Unable to assess. Data Data Last Documented VS Vital Signs Date Time Temp Pulse Resp B/P (MAP) Pulse Ox O2 Delivery O2 Flow Rate FiO2 05/31/17 14:43 99 20 97/53 (68) 99 Nasal Cannula 4.00 05/31/17 13:14 97.6 Orders Orders Sodium Chlor 0.9% 1000 Ml Inj (Ns 1000 M (05/31/17 13:30) Sodium Chlor 0.9% 1000 Ml Inj (Ns 1000 M (05/31/17 13:30) Sepsis Workup Initiated (05/31/17 ) Complete Blood Count With Diff (05/31/17 13:20) Comprehensive Metabolic Panel (05/31/17 13:20) Lactic Acid Sepsis Protocol (05/31/17 13:20) Urinalysis - C+S If Indicated (05/31/17 13:20) Blood Culture (05/31/17 13:20) Chest, Single Ap (05/31/17 13:20) Ecg Monitoring (05/31/17 13:20) Iv Access Insert/Monitor (05/31/17 13:20) Oximetry (05/31/17 13:20) Urinary Catheter Insert/Apply (05/31/17 13:20) Prothrombin Time / Inr (Pt) (05/31/17 13:50) Act Partial Throm Time (Ptt) (05/31/17 13:50) Ceftriaxone Inj (Rocephin Inj) (05/31/17 14:00) Electrocardiogram (05/31/17 13:24) Azithromycin Inj (Zithromax Inj) (05/31/17 14:15) Urine Culture (05/31/17 13:31) Ondansetron Inj (Zofran Inj) (05/31/17 14:30) Cbc No Diff, Includes Plts (06/01/17 05:00) Cbc No Diff, Includes Plts (06/02/17 05:00) Cbc No Diff, Includes Plts (06/03/17 05:00) Cbc No Diff, Includes Plts (06/04/17 05:00) Cbc No Diff, Includes Plts (06/05/17 05:00) Cbc No Diff, Includes Plts (06/06/17 05:00) Cbc No Diff, Includes Plts (06/07/17 05:00) Basic Metabolic Panel (Bmp) (06/01/17 05:00) Basic Metabolic Panel (Bmp) (06/02/17 05:00) Basic Metabolic Panel (Bmp) (06/03/17 05:00) Basic Metabolic Panel (Bmp) (06/04/17 05:00) Basic Metabolic Panel (Bmp) (06/05/17 05:00) Basic Metabolic Panel (Bmp) (06/06/17 05:00) Basic Metabolic Panel (Bmp) (06/07/17 05:00) ^ Medication Admin Instruction (05/31/17 14:35) Notify Dr: Other (05/31/17 14:35) Potassium Chlor 40 Meq Premix (Kcl 40 Me (05/31/17 14:45) Potassium Chlor 20 Meq Premix (Kcl 20 Me (05/31/17 14:45) Potassium Chloride Eff (K-Lyte Cl Eff) (05/31/17 14:45) Potassium Chlor 40 Meq Premix (Kcl 40 Me (05/31/17 14:45) Potassium Chlor 20 Meq Premix (Kcl 20 Me (05/31/17 14:45) Magnesium Sulfate Inj (Magnesium Sulfate (05/31/17 14:45) Magnesium Oxide (Mag-Ox) (05/31/17 14:45) Magnesium Sulfate Inj (Magnesium Sulfate (05/31/17 14:45) Potassium Phosphate (K-Phos) (05/31/17 14:45) Sodium Phosphate Inj (Sodium Phosphate I (05/31/17 14:45) Potassium Phosphate (K-Phos) (05/31/17 14:45) Potassium Phosphate Inj (Potassium Phosp (05/31/17 14:45) Inpatient Certification (05/31/17 14:35) Resp Ezpap/Pep Therapy (05/31/17 14:35) Resp Acapella/Pep/Chest Vibra (05/31/17 14:35) Resp Incentive Spirometry (05/31/17 14:35) Vital Signs (Adult) TAPAN.Q1H (05/31/17 14:35) Elevate Head Of Bed (05/31/17 14:35) Neuro Checks . ORDERED (05/31/17 14:35) Diet Npo (05/31/17 Dinner) Sodium Chlor 0.9% 1000 Ml Inj (Ns 1000 M (05/31/17 15:00) Sodium Chloride 0.9% Flush (Ns Flush) (05/31/17 14:45) Sodium Chloride 0.9% Flush (Ns Flush) (05/31/17 21:00) Albuterol-Ipratropium Neb (Duoneb Neb) (05/31/17 14:45) Lead Investigator / Telemetry TAPAN.Q8H (05/31/17 14:35) Heparin Inj (Heparin Inj) (05/31/17 16:00) Scd Bilateral/Knee High TAPAN.BID (05/31/17 14:35) ^ Initiate Protocol (05/31/17 14:35) Instruction (05/31/17 14:35) [facility] Nursing Information (05/31/17 14:45) Chlorhexidine 2% Cloth (Chlorhexidine 2% (06/01/17 04:00) Chlorhexidine 2% Cloth (Chlorhexidine 2% (05/31/17 14:45) Mrsa Pcr Surveillance (05/31/17 14:35) Docusate Sodium-Senna (Annmarie-Colace) (05/31/17 21:00) Magnesium Hydroxide Liq (Milk Of Magnesi (05/31/17 14:45) Ceftriaxone Inj (Rocephin Inj) (06/01/17 15:00) Azithromycin Inj (Zithromax Inj) (06/01/17 16:00) Pantoprazole Inj (Protonix Inj) (05/31/17 14:45) Pantoprazole Inj (Protonix Inj) (05/31/17 14:45) Admit Order (Ed Use Only) (05/31/17 15:36) Labs Laboratory Tests Test 05/31/17 13:30 05/31/17 13:31 05/31/17 13:32 White Blood Count 6.6 TH/MM3 Red Blood Count 3.74 MIL/MM3 Hemoglobin 9.5 GM/DL Hematocrit 30.0 % Mean Corpuscular Volume 80.2 FL Mean Corpuscular Hemoglobin 25.4 PG Mean Corpuscular Hemoglobin Concent 31.7 % Red Cell Distribution Width 15.3 % Platelet Count 266 TH/MM3 Mean Platelet Volume 8.8 FL Neutrophils (%) (Auto) 68.0 % Lymphocytes (%) (Auto) 19.0 % Monocytes (%) (Auto) 12.1 % Eosinophils (%) (Auto) 0.4 % Basophils (%) (Auto) 0.5 % Neutrophils # (Auto) 4.5 TH/MM3 Lymphocytes # (Auto) 1.3 TH/MM3 Monocytes # (Auto) 0.8 TH/MM3 Eosinophils # (Auto) 0.0 TH/MM3 Basophils # (Auto) 0.0 TH/MM3 CBC Comment DIFF FINAL Differential Comment Blood Urea Nitrogen 42 MG/DL Creatinine 1.76 MG/DL Random Glucose 135 MG/DL Total Protein 5.9 GM/DL Albumin 2.4 GM/DL Calcium Level 8.0 MG/DL Alkaline Phosphatase 161 U/L Aspartate Amino Transf (AST/SGOT) 44 U/L Alanine Aminotransferase (ALT/SGPT) 17 U/L Total Bilirubin 0.3 MG/DL Sodium Level 142 MEQ/L Potassium Level 4.0 MEQ/L Chloride Level 110 MEQ/L Carbon Dioxide Level 21.4 MEQ/L Anion Gap 11 MEQ/L Estimat Glomerular Filtration Rate 28 ML/MIN Urine Color YELLOW Urine Turbidity CLOUDY Urine pH 5.5 Urine Specific [place] 1.025 Urine Protein 30 mg/dL Urine Glucose (UA) NEG mg/dL Urine Ketones NEG mg/dL Urine Occult Blood NEG Urine Nitrite NEG Urine Bilirubin NEG Urine Urobilinogen 2.0 MG/DL Urine Leukocyte Esterase NEG Urine RBC 2 /hpf Urine WBC 3 /hpf Urine Squamous Epithelial Cells 4 /hpf Urine Bacteria MANY /hpf Urine Hyaline Casts 28 /lpf Urine Granular Casts 64 /lpf Urine Mucus MANY /lpf Microscopic Urinalysis Comment CULTURE INDICATED Lactic Acid Level 3.1 mmol/L MDM Medical Decision Making Medical Screen Exam Complete: Yes Emergency Medical Condition: Yes Medical Record Reviewed: Yes (we probably have her name incorrectly. Her family member here states that she has been here before. However, the pH are is indicating that this is her first visit here.) Interpretation(s) EKG shows a sinus rhythm with a rate of 94. She has some unifocal PVCs. Right bundle-branch block. Differential Diagnosis My differential diagnosis of hypotension includes but is not limited to acute blood loss, gastroenteritis, medication effect, sepsis Narrative Course Patient presents to us from home after a near syncopal event. She was found to be hypotensive with a systolic blood pressure of 60. IV fluids were started at wide open. A central line was placed is a patient of pressors. Septic workup was initiated. The urine is very cloudy so Rocephin was ordered empirically. CBC & BMP Diagram 05/31/17 13:30 Total Protein 5.9 L, Albumin 2.4 L, Calcium Level 8.0 L, Alkaline Phosphatase 161 H, Aspartate Amino Transf (AST/SGOT) 44 H, Alanine Aminotransferase (ALT/ SGPT) 17, Total Bilirubin 0.3 LA 3.1 UA shows many bacteria but also many mucus. It is nitrite and leukocyte esterase negative. Therefore, it does not look like she has urinary tract infection. Chest x-ray to my interpretation shows a right lower lobe infiltrate. The patient has been empirically treated with Rocephin and Zithromax. Her blood pressure did improve with IV fluids. Pressors have not been started. Critical Care Narrative Aggregate critical care time was 45minutes. Time to perform other separately billable procedures was not included in the critical care time. My time did not include minutes spent treating any other patients simultaneously or on activities that did not directly contribute to the patient's treatment. The services I provided to this patient were to treat and/or prevent clinically significant deterioration due to sepsis and pneumonia I provided critical care services requiring my management, as noted below: Chart data review, documentation time, medication orders and management, vital sign assessments/reviewing monitor data, ordering and reviewing lab tests, ordering and interpreting/reviewing x-rays and diagnostic studies, care of the patient and discussion of the patient with the admitting physicians HemaPrompt Point of Care Internal Pos. & Neg. Controls: Passed Fecal Specimen Occult Blood: Positive Sepsis Criteria SIRS Criteria (2 or more): Heart rate over 90, RR > 20 or PaCO2 < 32 Sepsis Criteria (SIRS+source): Infect source susp/known Severe Sepsis (+one): Lactate >2 Criteria Outcome: Meets SIRS criteria, Meets sepsis criteria, Meets severe sepsis criteria Diagnosis Primary Impression: Sepsis Qualified Codes: A41.9 - Sepsis, unspecified organism Additional Impressions: Pneumonia Qualified Codes: J18.1 - Lobar pneumonia, unspecified organism Hemoccult positive stools Admitting Information Admitting Physician Requests: Admit Condition: Stable Rylee Haile MD May 31, 2017 14:42
[2017-05-31] MEDS ORDERED: POTASSIUM PHOSPHATE MONOBASIC 500 MG TAB PO PRN (14:45)
[2017-05-31] MEDS ORDERED: MAGNESIUM SULFATE INJ 4 GM in SODIUM CHLORIDE 0.9% INJ 92 ML IV PRN (14:45)
[2017-05-31] MEDS ORDERED: POTASSIUM CHLORIDE 25 MEQ EFFERVESCENT TAB PO PRN (14:45)
[2017-05-31] MEDS ORDERED: PANTOPRAZOLE INJ 80 MG in SODIUM CHLORIDE 0.9% INJ 35 ML IV ONE (14:45)
[2017-05-31] MEDS ORDERED: MISCELLANEOUS NURSING INFORMATION XX SCH (14:45)
[2017-05-31] MEDS ORDERED: POTASSIUM PHOSPHATE MONOBASIC 500 MG TAB PO/TUBE PRN (14:45)
[2017-05-31] MEDS ORDERED: MAGNESIUM OXIDE 400 MG TAB PO PRN (14:45)
[2017-05-31] MEDS ORDERED: SODIUM CHLORIDE 0.9% FLUSH 10 ML FLUSH IV FLUSH PRN (14:45)
[2017-05-31] MEDS ORDERED: POTASSIUM PHOSPHATE INJ 30 MMOL in SODIUM CHLOR 0.9% 250 ML INJ 250 ML IV PRN (14:45)
[2017-05-31] MEDS ORDERED: MAGNESIUM SULFATE INJ 2 GM in SODIUM CHLORIDE 0.9% INJ 96 ML IV PRN (14:45)
[2017-05-31] MEDS ORDERED: MAGNESIUM HYDROXIDE SUSP 30 ML CUP PO PRN (14:45)
[2017-05-31] MEDS ORDERED: POTASSIUM CHLOR 40 MEQ PREMIX 100 ML IV PRN ×2 (14:45)
[2017-05-31] MEDS ORDERED: POTASSIUM CHLOR 20 MEQ PREMIX 100 ML IV PRN ×2 (14:45)
[2017-05-31] MEDS ORDERED: CHLORHEXIDINE GLUCONATE 2 % 1 PACK (2 CLOTHS) TOP PRN (14:45)
[2017-05-31] MEDS ORDERED: SODIUM PHOSPHATE INJ 30 MMOL in SODIUM CHLOR 0.9% 250 ML INJ 240 ML IV PRN (14:45)
[2017-05-31] MEDS: SODIUM CHLOR 0.9% 1000 ML INJ 1,000 ML IV SCH (15:17)
[2017-05-31] MEDS: PANTOPRAZOLE INJ 80 MG in SODIUM CHLORIDE 0.9% INJ 100 ML IV SCH (15:18)
[2017-05-31] MEDS ORDERED: HEPARIN SODIUM - SQ 10,000 UNITS/ML VIAL SQ SCH (16:00)
[2017-05-31 17:41] LABS: INTERNATIONAL NORMALIZED RATIO 1.1 RATIO; PROTHROMBIN TIME - PATIENT 11.3 SEC (9.8-11.6)
--- NOTE | 2017-05-31 19:18 | HHI.HP ---
HPI Service Critical Care Medicine Primary Care Physician Unknown Admission Diagnosis hypotension, pneumonia, GI bleed Diagnosis: Chief Complaint: altered mental status Travel History International Travel<30 Days: No Contact w/Intl Traveler <30 Da: No Traveled to Known Affected Are: No History of Present Illness This is a 77-year-old female with advanced end-stage Alzheimer's disease who lives at home with her who is her surgeon partner. She was brought in the emergency department with the complaints of presyncope. Due to her altered mental status, no additional information is obtainable from the patient. The ER physician contacted the who states that she is been having black tarry stools, and in addition she's been worsening Hao somnolent. In the emergency department, she was severely hypotensive with systolics in the 60s. She was given IV fluids. Her lactate was elevated with an elevated white count. Urinalysis is suggestive of UTI. Chest x-ray shows a right lower lobe consolidation consistent with community-acquired pneumonia. She was given aggressive fluid resuscitation and her vital signs improved. She is admitted for community acquired pneumonia, UTI, sepsis, possible GI bleed. On my values the patient, she is awake, but does not follow commands. Does not answer questions. Per reports from the ER physician and the , this is baseline for patient. Review of Systems ROS Limitations: Clinical Condition, Altered Mental Status, Poor Historian Past Family Social History Allergies: Coded Allergies: No Known Allergies (Unverified , 05/31/17) Past Medical History Per ER physician's report skin discussions with the , patient's only past medical history are dementia, hypertension, spinal stenosis and high cholesterol Past Surgical History Tonsillectomy Reported Medications Aspirin 81 (Aspirin) 81 Mg Tabdr 81 Mg PO DAILY Quetiapine (Quetiapine Fumarate) 100 Mg Tab 100 Mg PO BID Lisinopril 5 Mg Tab 5 Mg PO DAILY Aricept (Donepezil HCl) 10 Mg Tablet 1 Tab PO DAILY Naproxen 500 Mg Tab 500 Mg PO BID Namenda (Memantine) 10 Mg Tab 10 Mg PO DAILY Active Ordered Medications See MAR Family History Reviewed the chart and found to be noncontributory to her acute illness Social History Denies tobacco, EtOH, drugs of these Physical Exam Vital Signs Vital Signs Date Time Temp Pulse Resp B/P (MAP) Pulse Ox O2 Delivery O2 Flow Rate FiO2 05/31/17 17:00 104 1/28/18 16:45 96.2 102 22 111/60 (77) 100 05/31/17 16:21 05/31/17 15:58 91 22 91/56 (68) 97 Nasal Cannula 4.00 05/31/17 15:45 104 20 89/51 (64) 98 05/31/17 14:43 99 20 97/53 (68) 99 Nasal Cannula 4.00 05/31/17 14:22 101 18 95/50 (65) 97 Nasal Cannula 4.00 05/31/17 14:12 101 17 94/53 (67) 95 Nasal Cannula 4.00 05/31/17 14:11 94/53 (67) 05/31/17 13:58 106 18 91/56 (68) 97 Nasal Cannula 4.00 05/31/17 13:50 87 22 95/51 (66) 99 Nasal Cannula 4.00 05/31/17 13:23 92 Nasal Cannula 4.00 05/31/17 13:20 92 Nasal Cannula 4.00 05/31/17 13:14 97.6 99 16 78/46 (57) 86 Physical Exam GENERAL: Frail elderly female, lying in bed HEENT: Normocephalic. Atraumatic. Pupils equal, round, reactive, conjugate. Mucous membranes are dry NECK: Trachea is midline. There is no JVD. Right subclavian triple-lumen catheter site clean dry and intact CHEST: Nasal cannula oxygen. Equal chest rise. Bilateral rales in the lower lobes. CARDIOVASCULAR: Tachycardic rate, regular rhythm. Sinus by telemetry. ABDOMEN: Soft, nontender, nondistended. No guarding. MUSCULOSKELETAL: Pulses 2+. No peripheral edema. NEUROLOGICAL: RASS -2. Arouses, does not follow commands. Briskly purposeful. Laboratory Laboratory Tests Test 05/31/17 13:30 05/31/17 13:31 05/31/17 13:32 05/31/17 17:16 White Blood Count 6.6 Red Blood Count 3.74 Hemoglobin 9.5 Hematocrit 30.0 Mean Corpuscular Volume 80.2 Mean Corpuscular Hemoglobin 25.4 Mean Corpuscular Hemoglobin Concent 31.7 Red Cell Distribution Width 15.3 Platelet Count 266 Mean Platelet Volume 8.8 Neutrophils (%) (Auto) 68.0 Lymphocytes (%) (Auto) 19.0 Monocytes (%) (Auto) 12.1 Eosinophils (%) (Auto) 0.4 Basophils (%) (Auto) 0.5 Neutrophils # (Auto) 4.5 Lymphocytes # (Auto) 1.3 Monocytes # (Auto) 0.8 Eosinophils # (Auto) 0.0 Basophils # (Auto) 0.0 CBC Comment DIFF FINAL Differential Comment Blood Urea Nitrogen 42 Creatinine 1.76 Random Glucose 135 Total Protein 5.9 Albumin 2.4 Calcium Level 8.0 Alkaline Phosphatase 161 Aspartate Amino Transf (AST/SGOT) 44 Alanine Aminotransferase (ALT/SGPT) 17 Total Bilirubin 0.3 Sodium Level 142 Potassium Level 4.0 Chloride Level 110 Carbon Dioxide Level 21.4 Anion Gap 11 Estimat Glomerular Filtration Rate 28 Urine Color YELLOW Urine Turbidity CLOUDY Urine pH 5.5 Urine Specific [place] 1.025 Urine Protein 30 Urine Glucose (UA) NEG Urine Ketones NEG Urine Occult Blood NEG Urine Nitrite NEG Urine Bilirubin NEG Urine Urobilinogen 2.0 Urine Leukocyte Esterase NEG Urine RBC 2 Urine WBC 3 Urine Squamous Epithelial Cells 4 Urine Bacteria MANY Urine Hyaline Casts 28 Urine Granular Casts 64 Urine Mucus MANY Microscopic Urinalysis Comment CULTURE INDICATED Lactic Acid Level 3.1 1.1 Prothrombin Time 11.3 Prothromb Time International Ratio 1.1 Activated Partial Thromboplast Time 28.0 Date/Time Source Procedure Growth Status 05/31/17 13:35 Blood Peripheral Aerobic Blood Culture Pending Received 05/31/17 13:35 Blood Peripheral Anaerobic Blood Culture Pending Received 05/31/17 13:31 Urine Clean Catch Urine Culture Pending Received Result Diagram: 05/31/17 1330 05/31/17 1330 Imaging Last Impressions Chest X-Ray 05/31/17 1320 Signed Impressions: Service Date/Time: Wednesday, May 31, 2017 13:43 - CONCLUSION: 1. Right lower lobe moderate-sized area of consolidation versus atelectasis. 2. Right subclavian central venous catheter in place. Hima Lo MD Septic Shock Reassessment Septic shock perfusion: reassessment completed Caprini VTE Risk Assessment Caprini VTE Risk Assessment: Mod/High Risk (score >= 2) Caprini Risk Assessment Model Point Value = 1 Point Value = 2 Point Value = 3 Point Value = 5 Age 41-60 Minor surgery BMI > 25 kg/m2 Swollen legs Varicose veins or History of unexplained or recurrent spontaneous Oral contraceptives or hormone replacement Sepsis (< 1 month) Serious lung disease, including pneumonia (< 1 month) Abnormal pulmonary function Acute myocardial infarction Congestive heart failure (< 1 month) History of inflammatory bowel disease Medical patient at bed rest Age 61-74 Arthroscopic surgery Major open surgery (> 45 min) Laparoscopic surgery (> 45 min) Malignancy Confined to bed (> 72 hours) Immobilizing plaster cast Central venous access Age >= 75 History of VTE Family history of VTE Factor V Leiden Prothrombin [id number] Lupus anticoagulant Anticardiolipin antibodies Elevated serum homocysteine Heparin-induced thrombocytopenia Other congenital or acquired thrombophilia Stroke (< 1 month) Elective arthroplasty Hip, pelvis, or leg fracture Acute spinal cord injury (< 1 month) Prophylaxis Regimen Total Risk Factor Score Risk Level Prophylaxis Regimen 0-1 Low Early ambulation 2 Moderate Order ONE of the following: *Sequential Compression Device (SCD) *Heparin 5000 units SQ BID 3-4 Higher Order ONE of the following medications: *Heparin 5000 units SQ TID *Enoxaparin/Lovenox 40 mg SQ daily (WT < 150 kg, CrCl > 30 mL/min) *Enoxaparin/Lovenox 30 mg SQ daily (WT < 150 kg, CrCl > 10-29 mL/min) *Enoxaparin/Lovenox 30 mg SQ BID (WT < 150 kg, CrCl > 30 mL/min) AND/OR *Sequential Compression Device (SCD) 5 or more Highest Order ONE of the following medications: *Heparin 5000 units SQ TID (Preferred with Epidurals) *Enoxaparin/Lovenox 40 mg SQ daily (WT < 150 kg, CrCl > 30 mL/min) *Enoxaparin/Lovenox 30 mg SQ daily (WT < 150 kg, CrCl > 10-29 mL/min) *Enoxaparin/Lovenox 30 mg SQ BID (WT < 150 kg, CrCl > 30 mL/min) AND *Sequential Compression Device (SCD) Assessment and Plan Assessment and Plan Assessment: This is a 77yF with end-stage Alzheimer's disease and Severe Sepsis , community acquired pneumonia, urinary tract infection, and GI bleed. Admit to ICU. Per ER physician's discussion with , she does not wish to be resuscitated, and they have elected DNR, which I agree with. will continue supportive care. Severe Sepsis Community Acquired Pneumonia Urinary Tract Infection - continue ivf resuscitation - Rocephin 2gm iv q24h - Azithromycin 500mg iv q24h - f/u culture data GI bleed - hold pharmacologic dvt prophylaxis - trend hgb - ppi drip - will hold off on GI consult for now: will focus on resolving severe sepsis unless GI bleed becomes hemodynamically significant. end-stage Alzheimer's disease - agree with DNR, per patient's wishes - consult palliative care to assist with goals and decision making. SCDs ppi drip icu electrolyte protocol. Admit to ICU. Code Status DNR Alexander Barkley MD May 31, 2017 19:18
[2017-05-31] MEDS: SODIUM CHLORIDE 0.9% FLUSH 10 ML FLUSH IV FLUSH SCH (21:00)
[2017-05-31] MEDS: DOCUSATE SODIUM 50 MG/SENNA 8.6 MG TAB PO SCH (21:00)
[2017-06-01] VITALS (14 sets, daily range): BP systolic 87–122; BP diastolic 53–69; PULSE 74–97; RESP 14–24; TEMP 97.9–98.8; O2SAT 93–100
[2017-06-01 00:25] LABS: HEMATOCRIT 29.3 % (35.0-46.0); HEMOGLOBIN 9.3 GM/DL (11.6-15.3)
[2017-06-01] MEDS: PANTOPRAZOLE INJ 80 MG in SODIUM CHLORIDE 0.9% INJ 100 ML IV SCH (01:05)
[2017-06-01] MEDS: CHLORHEXIDINE GLUCONATE 2 % 1 PACK (2 CLOTHS) TOP SCH (02:00)
[2017-06-01 05:07] LABS: HEMATOCRIT 29.2 % (35.0-46.0); HEMOGLOBIN 9.3 GM/DL (11.6-15.3); MEAN CELL VOLUME 79.3 FL (80.0-100.0); MEAN CORPUSCULAR HEMOGLOBIN 25.2 PG (27.0-34.0); MEAN CORPUSCULAR HGB CONC 31.8 % (32.0-36.0); MEAN PLATELET VOLUME 8.3 FL (7.0-11.0); PLATELET COUNT 264 TH/MM3 (150-450); RED BLOOD COUNT 3.68 MIL/MM3 (4.00-5.30); RED CELL DISTRIBUTION WIDTH 14.9 % (11.6-17.2); WHITE BLOOD COUNT 8.2 TH/MM3 (4.0-11.0)
[2017-06-01 05:19] LABS: BICARBONATE 19.1 MEQ/L (21.0-32.0); CREATININE 0.78 MG/DL (0.50-1.00)
[2017-06-01] MEDS: SODIUM CHLOR 0.9% 1000 ML INJ 1,000 ML IV SCH ×2 (07:40→20:06)
[2017-06-01] MEDS: DOCUSATE SODIUM 50 MG/SENNA 8.6 MG TAB PO SCH ×2 (08:28→21:00)
--- NOTE | 2017-06-01 09:15 | HHI.CCPN ---
Subjective Remarks/Hospital Course Hospital Course: This is a 77-year-old female with advanced end-stage Alzheimer's disease who lives at home with her who is her director of surgery. She was brought in the emergency department with the complaints of presyncope. Due to her altered mental status, no additional information is obtainable from the patient. The ER physician contacted the who states that she is been having black tarry stools, and in addition she's been worsening Hao somnolent. In the emergency department, she was severely hypotensive with systolics in the 60s. She was given IV fluids. Her lactate was elevated with an elevated white count. Urinalysis is suggestive of UTI. Chest x-ray shows a right lower lobe consolidation consistent with community-acquired pneumonia. She was given aggressive fluid resuscitation and her vital signs improved. She is admitted for community acquired pneumonia, UTI, sepsis, possible GI bleed. On my values the patient, she is awake, but does not follow commands. Does not answer questions. Per reports from the ER physician and the , this is baseline for patient. subjective: 06/01: clinically improving. denies complaints. Cr improving. BP improving. HR improving. good uop. wbc normal. cultures pending. Objective Vital Signs Date Time Temp Pulse Resp B/P (MAP) Pulse Ox O2 Delivery O2 Flow Rate FiO2 06/01/17 08:17 100 Nasal Cannula 3.00 06/01/17 08:00 98.7 78 14 105/69 (81) Intake and Output 06/01/17 06/01/17 06/02/17 08:00 16:00 00:00 Intake Total 100 ml Output Total 800 ml Balance -700 ml Result Diagram: 06/01/17 0435 06/01/17 0435 Other Results Microbiology Date/Time Source Procedure Growth Status 05/31/17 13:31 Urine Catheterized Urine Legionella Antigen - Final PRESUMPTIVE NEGATIVE FOR LEGIONELLA P... Complete 05/31/17 13:31 Urine Catheterized Urine Streptococcus pneumoniae Antigen (M - Final PRESUMPTIVE NEGATIVE FOR STREPTOCOCCU... Complete Imaging Last Impressions Chest X-Ray 05/31/17 1320 Signed Impressions: Service Date/Time: Wednesday, May 31, 2017 13:43 - CONCLUSION: 1. Right lower lobe moderate-sized area of consolidation versus atelectasis. 2. Right subclavian central venous catheter in place. Hima Lo MD Objective Remarks GENERAL: Frail elderly female, lying in bed HEENT: Normocephalic. Atraumatic. Pupils equal, round, reactive, conjugate. Mucous membranes are moist NECK: Trachea is midline. There is no JVD. Right subclavian triple-lumen catheter site clean dry and intact CHEST: Nasal cannula oxygen. Equal chest rise. Bilateral rales in the lower lobes. CARDIOVASCULAR: normal rate, regular rhythm. Sinus by telemetry. ABDOMEN: Soft, nontender, nondistended. No guarding. MUSCULOSKELETAL: Pulses 2+. No peripheral edema. NEUROLOGICAL: RASS -1. Arouses, follows commands. A/P Assessment and Plan Assessment: This is a 77yF with end-stage Alzheimer's disease and Severe Sepsis , community acquired pneumonia, urinary tract infection, and ? GI bleed. Clinically improving. continue abx. decrease ivf. hgb serially have been negative. will transition to IV BID PPI. stable for transfer out of ICU. Severe Sepsis Community Acquired Pneumonia Urinary Tract Infection - decrease mivf to 75cc/hr - Rocephin 2gm iv q24h - Azithromycin 500mg iv q24h - f/u culture data GI bleed - hold pharmacologic dvt prophylaxis - hgb remained stable. - d/c ppi drip and start iv BID PPI. - will hold off on GI consult for now: will focus on resolving severe sepsis unless GI bleed becomes hemodynamically significant. end-stage Alzheimer's disease - agree with DNR, per patient's wishes - consult palliative care to assist with goals and decision making. Acute kidney injury- resolved. Dysphagia - speech to eval. Acute protein calorie malnutrition- moderate - PT consult. SCDs IV BID PPI. icu electrolyte protocol. transfer out of ICU. consult hospitalist. Alexander Barkley MD Jun 01, 2017 09:15
[2017-06-01] MEDS: PANTOPRAZOLE SODIUM 40 MG VIAL IV PUSH SCH ×2 (09:42→21:15)
[2017-06-01] MEDS: SODIUM CHLORIDE 0.9% FLUSH 10 ML FLUSH IV FLUSH SCH ×2 (09:42→21:15)
--- NOTE | 2017-06-01 09:48 | PD.CONS ---
Consult Service Palliative Care Consult Requested By Dr Barkley Primary Care Physician To assist with goals of care and decision making . Reason for Consultation a. To assist with evaluation and management of symptoms including: dysphasia , debility b. To assist medical decision maker(s) with: better understanding of current medical conditions; weighing benefits/burdens of medical treatment options; making medical treatment decisions . HPI History of Present Illness This is a 77 year old female with hx of Alzheimer's dementia who was residing at home with her when she became abruptly incontinent of tarry black stool followed by acute vomiting, became less responsive and was visibly having trouble breathing. He called EMS to transport her to the ED. Upon arrival she was noted to have a systolic blood pressure in the 60s and appeared very ill; due to her advanced dementia she was unable to answer questions. Labs were significant for normal WBC, Hb 9.5 with low-normal MCV, and some renal dysfunction with creatinine of 1.76, mildly elevated transaminases and lactic acid of 3.1. Culture is pending on U/A; CXR showed moderate size right lower lobe consolidation. Blood cultures are pending; MRSA nasal screen was negative. She has been afebrile since admission; Hb has remained stable with no evidence of leukocytosis. After aggressive fluid resuscitation, creatinine has improved to normal at 0.78 and she has been deemed stable for transfer out of ICU. Her elected DNR status upon admission and states that she was enrolled into the services of [facility] as of last , 05/28/17. She is seen and examined in ICU; joint visit with JENNI Lomeli. She is mildly hard of hearing; appears withdrawn and becomes irritable with repeated calling of her name. She answers to her name; is aware that she was born in May, but thinks that she is still living in [place] where she was born. She follows a few simple commands but cannot name the president nor recall what she ate for breakfast. She states she is a little bit hungry, has no pain, and does not understand where she is or why she is here. Her vocabulary is limited , but the few words she utters are fairly clearly understood. She exhibits a harsh occasional cough; does not recognize family members at bedside. . Function/Cognitive Trajectory Patient resides at home with her spouse of 60 years who remains her caregiver. He verbalizes that her health has been relatively stable but that over the past few months she has been somewhat more confused and less verbal; she has become markedly less ambulatory and less able to feed herself over the past two months. Her family reports that she has been unable to recognize them for several months, although her agitation has been quite well controlled on Seroquel. They are aware that the trajectory of dementia involves progression without improvement and have noticed significant decrease in her ability to interact over the past few months. . Review of Systems ROS Limitations: Altered Mental Status, Hearing Impaired (ROS limited by patient's dementia; she is unable to answer most questions. ROS obtained from as well as chart review.), Poor Historian Constitutional: COMPLAINS OF: Fatigue, Dizziness, Generalized weakness, DENIES : Diaphoretic episodes, Fever, Weight gain, Weight loss, Chills, Change in appetite, Night Sweats, Pain, Sleep problems Endocrine: DENIES: Abnorml menstrual pattern, Heat/cold intolerance, Polydipsia , Polyuria, Polyphagia Eyes: DENIES: Blurred vision, Diplopia, Eye inflammation, Eye pain, Vision loss , Photosensitivity, Double Vision, Blind spots Ears, nose, mouth, throat: DENIES: Tinnitus, Hearing loss, Vertigo, Nasal discharge, Oral lesions, Throat pain, Hoarseness, Ear Pain, Running Nose, Epistaxis, Sinus Pain, Toothache, Odynophagia Respiratory: COMPLAINS OF: Shortness of breath, DENIES: Apneas, Cough, Snoring , Wheezing, Hemoptysis, Sputum production Cardiovascular: DENIES: Chest pain, Palpitations, Syncope, Dyspnea on Exertion , PND, Lower Extremity Edema, Orthopnea, Claudication Gastrointestinal: COMPLAINS OF: Black stools (Incontinent of tarry stool at home), Vomiting (Acute vomiting episode at home), DENIES: Abdominal pain, Bloody stools, Constipation, Diarrhea, Nausea, Difficulty Swallowing, Anorexia, Dyspepsia or heartburn, Excessive gas, Bloating, Vomiting blood Genitourinary: DENIES: Abnormal vaginal bleeding, Dysmenorrhea, Dyspareunia, Sexual dysfunction, Urinary frequency, Urinary incontinence, Urgency, Hematuria , Dysuria, Nocturia, Vaginal discharge, Hesitancy, Dribbling, Decreased stream Musculoskeletal: DENIES: Joint pain, Muscle aches, Stiffness, Joint Swelling, Back pain, Neck pain, Decreased range of motion Integumentary: DENIES: Abnormal pigmentation, Pruritus, Rash, Nail changes, Breast masses, Breast skin changes, Nipple discharge, Nodules, Tumors, Excessive dryness, Non-healing sores Hematologic/Lymphatics: DENIES: Bruising, Lymphadenopathy, Prolonged bleed w/ proced, History of transfusions Immunologic/Allergic: DENIES: Eczema, Urticaria Neurologic: COMPLAINS OF: Abnormal gait (required wheelchair), Speech Problems , Poor Balance, DENIES: Headache, Localized weakness, Paresthesias, Seizures, Tremor, Change in smell or taste Psychiatric: COMPLAINS OF: Anxiety, Confusion (Less verbal; unable to recognize family), Hallucinations, Agitation (controlled on Seroquel), Delusions , DENIES: Mood changes, Depression, Suicidal Ideation, Homicidal Ideation, Anhedonia Past Family Social History Coded Allergies: No Known Allergies (Unverified , 05/31/17) Past Medical History Alzheimer's dementia Hypertension Spinal stenosis Hypercholesterolemia . Past Surgical History Tonsillectomy . Reported Medications Aspirin 81 (Aspirin) 81 Mg Tabdr 81 Mg PO DAILY Quetiapine (Quetiapine Fumarate) 100 Mg Tab 100 Mg PO BID Lisinopril 5 Mg Tab 5 Mg PO DAILY Aricept (Donepezil HCl) 10 Mg Tablet 1 Tab PO DAILY Naproxen 500 Mg Tab 500 Mg PO BID Namenda (Memantine) 10 Mg Tab 10 Mg PO DAILY . Current Medications Medications (Trade) Dose Ordered Sig/Ayana Route Start Time Stop Time Status Last Admin Potassium Chloride 100 ml @ 50 mls/hr Q2H PRN IV 05/31/17 14:45 Potassium Chloride 100 ml @ 50 mls/hr Q2H PRN IV 05/31/17 14:45 (K-Lyte Cl Eff) 50 meq UNSCH PRN PO 05/31/17 14:45 Potassium Chloride 100 ml @ 25 mls/hr UNSCH PRN IV 05/31/17 14:45 Potassium Chloride 100 ml @ 50 mls/hr Q2H PRN IV 05/31/17 14:45 Magnesium Sulfate 4 gm/Sodium Chloride 100 ml @ 50 mls/hr UNSCH PRN IV 05/31/17 14:45 (Mag-Ox) 800 mg UNSCH PRN PO 05/31/17 14:45 Magnesium Sulfate 2 gm/Sodium Chloride 100 ml @ 50 mls/hr UNSCH PRN IV 05/31/17 14:45 (K-Phos) 2,000 mg Q4H PRN PO 05/31/17 14:45 Sodium Phosphate 30 mmol/Sodium Chloride 250 ml @ 42 mls/hr UNSCH PRN IV 05/31/17 14:45 (K-Phos) 2,000 mg UNSCH PRN PO/TUBE 05/31/17 14:45 Potassium Phosphate 30 mmol/ Sodium Chloride 260 ml @ 42 mls/hr UNSCH PRN IV 05/31/17 14:45 Sodium Chloride 1,000 ml @ 75 mls/hr [id number] IV 05/31/17 15:00 05/31/17 15:17 (NS Flush) 2 ml UNSCH PRN IV FLUSH 05/31/17 14:45 (NS Flush) 2 ml BID IV FLUSH 05/31/17 21:00 05/31/17 21:00 (Duoneb Neb) 1 ampule Q2HR NEB PRN INH 05/31/17 14:45 (Heparin Inj) 5,000 units Q8H SQ 05/31/17 16:00 Future Hold 05/31/17 19:06 Miscellaneous Information 1 [id number] XX 05/31/17 14:45 (Chlorhexidine 2% Cloth) 3 pack Taper DAILY@04 TOP 06/01/17 04:00 05/28/18 03:59 06/01/17 02:00 (Chlorhexidine 2% Cloth) 3 pack UNSCH PRN TOP 05/31/17 14:45 (Annmarie-Colace) 1 tab BID PO 05/31/17 21:00 (Milk Of Magnprosper Liq) 30 ml Q12H PRN PO 05/31/17 14:45 Ceftriaxone Sodium 2000 mg/ Sodium Chloride 100 ml @ 200 mls/hr Q24H IV 06/01/17 15:00 Azithromycin 500 mg/Sodium Chloride 250 ml @ 250 mls/hr Q24H IV 06/01/17 16:00 (Protonix Inj) 40 mg Q12H IV PUSH 06/01/17 10:00 Family History Mother of dementia at age 86; father with AMI at age 76. . Substance Use Tobacco: none Alcohol:none Prescription med abuse: none Illicits:none . Psychosocial History She was born in [place]; to her current Eugenio for 60 years. They had four children; one is ; a son Phuc lives in [place]. . . 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 feels interior design assistant services would not be of benefit to patient since she would be unlikely to understand. . Living Will: Never completed Health Care Surrogate: Never completed Durable Power of Franchise Broker: Completed, but not made available Health Care Surrogate(s): reports he is the designated health care surrogate; paperwork pending Today's verbally stated goals: Unable to state any goals Family/friends goals: and son are committed to bringing her home with current hospice services , but are willing to complete the current course of antibiotics for pneumonia; they realize that she may or may not return to her baseline, but agree that she would not want interventions such as feeding tube or other invasive procedures. . Ethical and Legal Issues No ethical concerns identified by family. . Physical Exam Vital Signs Date Time Temp Pulse Resp B/P (MAP) Pulse Ox O2 Delivery O2 Flow Rate FiO2 06/01/17 08:17 100 Nasal Cannula 3.00 06/01/17 08:00 98.7 78 14 105/69 (81) 99 06/01/17 08:00 78 06/01/17 06:00 86 06/01/17 04:00 96 06/01/17 04:00 98.5 96 19 122/69 (86) 99 06/01/17 02:00 92 06/01/17 00:00 98.2 97 16 115/62 (79) 99 06/01/17 00:00 97 05/31/17 22:00 98 05/31/17 20:00 98.3 102 16 113/63 (80) 98 05/31/17 20:00 102 05/31/17 17:00 104 05/31/17 16:45 96.2 102 22 111/60 (77) 100 05/31/17 16:21 05/31/17 15:58 91 22 91/56 (68) 97 Nasal Cannula 4.00 05/31/17 15:45 104 20 89/51 (64) 98 05/31/17 14:43 99 20 97/53 (68) 99 Nasal Cannula 4.00 05/31/17 14:22 101 18 95/50 (65) 97 Nasal Cannula 4.00 05/31/17 14:12 101 17 94/53 (67) 95 Nasal Cannula 4.00 05/31/17 14:11 94/53 (67) 05/31/17 13:58 106 18 91/56 (68) 97 Nasal Cannula 4.00 05/31/17 13:50 87 22 95/51 (66) 99 Nasal Cannula 4.00 05/31/17 13:23 92 Nasal Cannula 4.00 05/31/17 13:20 92 Nasal Cannula 4.00 05/31/17 13:14 97.6 99 16 78/46 (57) 86 Exam CONSTITUTIONAL/GENERAL: This is an adequately nourished patient, in no apparent distress. She is mildly hard of hearing but does respond to vigorous calling of her name TUBES/LINES/DRAINS: PIV; Valdovinos catheter; SCDs SKIN: No jaundice, rashes, or lesions. . No wounds seen anteriorly. Skin temperature appropriate. Not diaphoretic. Mild general pallor HEAD: Atraumatic. Normocephalic. EYES: Pupils equal and round and reactive. Extraocular motions intact. No scleral icterus. No injection or drainage. Conjunctivae pale ENT: Mildly [place]. Nose without bleeding or purulent drainage. Throat without visible erythema, exudates, masses, or lesions. Adequate dentition NECK: Trachea midline. Supple, nontender. No palpable thyroid enlargement or nodularity. CARDIOVASCULAR: Regular rate and rhythm without murmurs, gallops, or rubs. No JVD. Peripheral pulses symmetric. RESPIRATORY/CHEST: Symmetric, unlabored respirations. Bilateral crackles; a few isolated wheezes apparent GASTROINTESTINAL: Abdomen soft, non-tender, nondistended. No hepato-splenomegaly , or palpable masses. No guarding. Bowel sounds active. GENITOURINARY: Without palpable bladder distension. Valdovinos catheter in place. MUSCULOSKELETAL: Extremities without clubbing, cyanosis, or edema. No joint tenderness or effusion noted. No calf tenderness. No mottling or clubbing. LYMPHATICS: No palpable cervical or supraclavicular adenopathy. NEUROLOGICAL: Awake and alert. Motor and sensory grossly within normal limits. Follows some simple commands. Spontaneous and purposeful movement x 4; confused but mostly cooperative PSYCHIATRIC: Mild irritation with continued auditory stimulation but generally cooperative; oriented x 1 . Diagnostic Tests Laboratory Laboratory Tests Test 1/28/18 13:30 05/31/17 13:31 05/31/17 13:32 05/31/17 17:16 White Blood Count 6.6 TH/MM3 (4.0-11.0) Red Blood Count 3.74 MIL/MM3 (4.00-5.30) Hemoglobin 9.5 GM/DL (11.6-15.3) Hematocrit 30.0 % (35.0-46.0) Mean Corpuscular Volume 80.2 FL (80.0-100.0) Mean Corpuscular Hemoglobin 25.4 PG (27.0-34.0) Mean Corpuscular Hemoglobin Concent 31.7 % (32.0-36.0) Red Cell Distribution Width 15.3 % (11.6-17.2) Platelet Count 266 TH/MM3 (150-450) Mean Platelet Volume 8.8 FL (7.0-11.0) Neutrophils (%) (Auto) 68.0 % (16.0-70.0) Lymphocytes (%) (Auto) 19.0 % (9.0-44.0) Monocytes (%) (Auto) 12.1 % (0.0-8.0) Eosinophils (%) (Auto) 0.4 % (0.0-4.0) Basophils (%) (Auto) 0.5 % (0.0-2.0) Neutrophils # (Auto) 4.5 TH/MM3 (1.8-7.7) Lymphocytes # (Auto) 1.3 TH/MM3 (1.0-4.8) Monocytes # (Auto) 0.8 TH/MM3 (0-0.9) Eosinophils # (Auto) 0.0 TH/MM3 (0-0.4) Basophils # (Auto) 0.0 TH/MM3 (0-0.2) CBC Comment DIFF FINAL Differential Comment Blood Urea Nitrogen 42 MG/DL (7-18) Creatinine 1.76 MG/DL (0.50-1.00) Random Glucose 135 MG/DL (74-106) Total Protein 5.9 GM/DL (6.4-8.2) Albumin 2.4 GM/DL (3.4-5.0) Calcium Level 8.0 MG/DL (8.5-10.1) Alkaline Phosphatase 161 U/L (45-117) Aspartate Amino Transf (AST/SGOT) 44 U/L (15-37) Alanine Aminotransferase (ALT/SGPT) 17 U/L (10-53) Total Bilirubin 0.3 MG/DL (0.2-1.0) Sodium Level 142 MEQ/L (136-145) Potassium Level 4.0 MEQ/L (3.5-5.1) Chloride Level 110 MEQ/L (98-107) Carbon Dioxide Level 21.4 MEQ/L (21.0-32.0) Anion Gap 11 MEQ/L (5-15) Estimat Glomerular Filtration Rate 28 ML/MIN (>89) Urine Color YELLOW (YELLW/STRAW) Urine Turbidity CLOUDY (CLEAR) Urine pH 5.5 (5.0-8.5) Urine Specific [place] 1.025 (1.002-1.035) Urine Protein 30 mg/dL (NEG-TRACE) Urine Glucose (UA) NEG mg/dL (NEG) Urine Ketones NEG mg/dL (NEG) Urine Occult Blood NEG (NEG) Urine Nitrite NEG (NEG) Urine Bilirubin NEG (NEG) Urine Urobilinogen 2.0 MG/DL (LESS THAN Urine Leukocyte Esterase NEG (NEG) Urine RBC 2 /hpf (0-3) Urine WBC 3 /hpf (0-5) Urine Squamous Epithelial Cells 4 /hpf (0-5) Urine Bacteria MANY /hpf (NONE) Urine Hyaline Casts 28 /lpf (RARE) Urine Granular Casts 64 /lpf (NONE) Urine Mucus MANY /lpf (OCC) Microscopic Urinalysis Comment CULTURE INDICATED Lactic Acid Level 3.1 mmol/L (0.4-2.0) 1.1 mmol/L (0.4-2.0) Prothrombin Time 11.3 SEC (9.8-11.6) Prothromb Time International Ratio 1.1 RATIO Activated Partial Thromboplast Time 28.0 SEC (24.3-30.1) Nasal Screen MRSA (PCR) MRSA NOT DETECTED (NOT Test 06/01/17 00:10 06/01/17 04:35 Hemoglobin 9.3 GM/DL (11.6-15.3) 9.3 GM/DL (11.6-15.3) Hematocrit 29.3 % (35.0-46.0) 29.2 % (35.0-46.0) White Blood Count 8.2 TH/MM3 (4.0-11.0) Red Blood Count 3.68 MIL/MM3 (4.00-5.30) Mean Corpuscular Volume 79.3 FL (80.0-100.0) Mean Corpuscular Hemoglobin 25.2 PG (27.0-34.0) Mean Corpuscular Hemoglobin Concent 31.8 % (32.0-36.0) Red Cell Distribution Width 14.9 % (11.6-17.2) Platelet Count 264 TH/MM3 (150-450) Mean Platelet Volume 8.3 FL (7.0-11.0) Blood Urea Nitrogen 25 MG/DL (7-18) Creatinine 0.78 MG/DL (0.50-1.00) Random Glucose 77 MG/DL (74-106) Calcium Level 8.0 MG/DL (8.5-10.1) Sodium Level 145 MEQ/L (136-145) Potassium Level 4.1 MEQ/L (3.5-5.1) Chloride Level 116 MEQ/L (98-107) Carbon Dioxide Level 19.1 MEQ/L (21.0-32.0) Anion Gap 10 MEQ/L (5-15) Estimat Glomerular Filtration Rate 71 ML/MIN (>89) Result Diagram: 06/01/17 0435 06/01/17 0435 Microbiology Microbiology Date/Time Source Procedure Growth Status 05/31/17 13:35 Blood Peripheral Aerobic Blood Culture Pending Received 05/31/17 13:35 Blood Peripheral Anaerobic Blood Culture Pending Received 05/31/17 13:25 Blood Peripheral Aerobic Blood Culture Pending Received 05/31/17 13:25 Blood Peripheral Anaerobic Blood Culture Pending Received 05/31/17 13:31 Urine Catheterized Urine Legionella Antigen - Final PRESUMPTIVE NEGATIVE FOR LEGIONELLA P... Complete 05/31/17 13:31 Urine Catheterized Urine Streptococcus pneumoniae Antigen (M - Final PRESUMPTIVE NEGATIVE FOR STREPTOCOCCU... Complete 05/31/17 13:31 Urine Clean Catch Urine Culture Pending Received Imaging Last 24 hours Impressions Chest X-Ray 05/31/17 1320 Signed Impressions: Service Date/Time: Wednesday, May 31, 2017 13:43 - CONCLUSION: 1. Right lower lobe moderate-sized area of consolidation versus atelectasis. 2. Right subclavian central venous catheter in place. Hima Lo MD Procedures Right subclavian central line placed 05/31/17 Central line d/c'd 06/01/17 Patient/Family Conference Present at Family Conference: Spoke with Eugenio by phone. He states that patient was enrolled into [facility] services on 05/28/17. He and his son will be in to visit patient this afternoon. Additional conference with pt's Eugenio and son Phuc at bedside. . Family Conference Time (mins): 28 Family Conference Location: Bedside Issues Discussed: * Palliative care role, purpose, approach * Additional medical, psychosocial, and spiritual history * Patients general health, functional status, and cognitive changes in the months leading up to the current hospitalization * Patient/family understanding of the current medical problems * Patient/family understanding of prognosis * Patients goals of care as best understood from advance directives and/or conversations and/or values * Current medical treatment options and benefits/burdens of those options * Likely scenarios comparing ongoing aggressive care with a transition to comfort measures only * Questions answered to the best of my ability * Palliative care contact information provided * . Assessment and Plan Disease Oriented Problem List: (1) Dementia Comment: First noted by family in 2013; pace of decline has accelerated over the past few months . (2) Weakness Comment: Had become unable to ambulate at home, needed to be picked up out of bed to chair; unlikely to resume ambulation . (3) Pneumonia Comment: Continuing IV antibiotics . Symptom Scale: (1) Dyspnea 0-10 Scale: Unable to quantify (2) Debility 0-10 Scale: Unable to quantify Pertinent Non-Medical Issues Psychosocial:She was born in [place]; to her current Eugenio for 60 years. They had four children; one is ; a son Phuc lives in [place]. . Spiritual: Was a member of the [employer]; was attending [employer] services until progression of her illness; interior design assistant services declined at this time Legal: She is unable to participate in medical decision making and it is highly unlikely that she will regain the ability to make meaningful decisions regarding her medical care. Eugenio reports that he is her designated health care surrogate; paperwork pending. Per [place] statute, in the absence of written advance directives, decision making would fall to her who verbalizes understanding and willingness to accept this role. Ethical issues impacting care:none identified . Important Contacts Spouse Eugenio Ralph [phone] . Prognosis Given history of Alzheimer's dementia, she remains at risk for further clinical decline and hospitalization. Family expresses strong preference that she return home with hospice services with comfort-oriented goals of care. . . Code Status: No Code Plan * DECISION MAKER: Eugenio Ralph [phone]. * NO CODE * GOALS OF CARE: Patient is currently enrolled in [facility]. Family hoping to take her home once antibiotic therapy is optimized to resume comfort- oriented care. * SYMPTOMS: debility - continue bedrest; unlikely to be successful with Physical Therapy; dysphasia - she is less interactive this afternoon; family report that this is the general level of responsiveness they had been seeing at home prior to hospitalization. Dyspnea -- high risk for dyspnea given pneumonia and decreased mobility; consider attempt to wean to room air prior to d/c home; family hoping to take her home on 06/05 * Palliative care contact information provided * Palliative care will continue to follow to assist with communication and clarification of treatment goals as needed. * . Time Spent Total Floor Time (mins): 25 (Total time spent to include chart review, physical exam, and attempt to contact family for goals of care discussion) >50% Counseling/Coord of Care: Yes Thank you for the opportunity to participate in the care of Ms. Ralph. Attestation To help prompt me to consider important information that might be impacting today's encounter and assessment, information from prior notes written by myself or my colleagues may have been "brought forward" into today's note. My signature on this note, however, is an attestation that I personally performed the exam, history, and/or decision-making noted today, and, unless otherwise indicated, the interactions with patient, family, and staff as well as the review of records all occurred today. I also attest that the listed assessment and stated plan reflect my best clinical judgment today based on the combination of historical information, prior notes, and today's exam/ interactions. When time spent is documented, it refers only to time spent today by the signer, or if indicated, combined time spent today by collaborating physician/nurse practitioner. Lorena Johnson Jun 01, 2017 09:48
[2017-06-01] MEDS: cefTRIAXone INJ 2,000 MG in SODIUM CHLORIDE 0.9% INJ 100 ML IV SCH (15:17)
[2017-06-01] MEDS: AZITHROMYCIN INJ 500 MG in SODIUM CHLOR 0.9% 250 ML INJ 250 ML IV SCH (15:18)
--- NOTE | 2017-06-01 18:50 | EKG ---
Date Performed: 05/31/2017 Time Performed: 13:24:34 PTAGE: 77 years EKG: Sinus rhythm WITH FREQUENT VENTRICULAR PREMATURE COMPLEXES MARKED LEFT AXIS DEVIATION LOW QRS VOLTAGE IN PRECORDI AL LEADS INCOMPLETE RIGHT BUNDLE BRANCH BLOCK NONSPECIFIC T-WAVE ABNORMALITY ABNORMAL ECG NO PREVIOUS TRACING DOCTOR: Mac Gibbons Interpretating Date/Time 06/01/2017 18:49:27
[2017-06-02] VITALS (12 sets, daily range): BP systolic 103–125; BP diastolic 63–84; PULSE 67–94; RESP 16–18; TEMP 95.4–97.4; O2SAT 92–97
[2017-06-02] MEDS: CHLORHEXIDINE GLUCONATE 2 % 1 PACK (2 CLOTHS) TOP SCH ×2 (00:26→20:19)
[2017-06-02] MEDS: RESP: ALBUTEROL 2.5 MG/IPRATROPIUM 0.5 MG NEB (PRN) INH (04:55)
[2017-06-02 07:22] LABS: HEMATOCRIT 30.7 % (35.0-46.0); HEMOGLOBIN 9.7 GM/DL (11.6-15.3); MEAN CELL VOLUME 81.2 FL (80.0-100.0); MEAN CORPUSCULAR HEMOGLOBIN 25.5 PG (27.0-34.0); MEAN CORPUSCULAR HGB CONC 31.5 % (32.0-36.0); MEAN PLATELET VOLUME 8.7 FL (7.0-11.0); PLATELET COUNT 219 TH/MM3 (150-450); RED BLOOD COUNT 3.78 MIL/MM3 (4.00-5.30); RED CELL DISTRIBUTION WIDTH 15.4 % (11.6-17.2); WHITE BLOOD COUNT 6.9 TH/MM3 (4.0-11.0)
[2017-06-02 07:49] LABS: CALCIUM 8.1 MG/DL (8.5-10.1); CREATININE 0.65 MG/DL (0.50-1.00)
[2017-06-02] MEDS: DOCUSATE SODIUM 50 MG/SENNA 8.6 MG TAB PO SCH ×2 (08:53→20:18)
[2017-06-02] MEDS: SODIUM CHLORIDE 0.9% FLUSH 10 ML FLUSH IV FLUSH SCH ×2 (08:54→20:18)
[2017-06-02] MEDS: PANTOPRAZOLE SODIUM 40 MG VIAL IV PUSH SCH ×2 (08:54→20:19)
[2017-06-02] MEDS: SODIUM CHLOR 0.9% 1000 ML INJ 1,000 ML IV SCH (08:55)
--- NOTE | 2017-06-02 14:08 | HHI.HCPN ---
Reason for visit a. To assist with evaluation and management of symptoms including: dysphasia , debility b. To assist medical decision maker(s) with: better understanding of current medical conditions; weighing benefits/burdens of medical treatment options; making medical treatment decisions . Subjective/Interval History Patient seen in room 1705; no family are present. She is resting with eyes closed but rouses fairly easily; visually engages and even answers simple questions and follows basic commands. She denies pain or shortness of breath but harsh cough remains present. She tells me that "yes" she is ready to return home. She has consistently been afebrile; less tachycardic today. O2 sats are only 92 % with oxygen at 2LPM via nasal cannula. CBC remains quite stable without evidence of leukocytosis; Hb 9.7. Creatinine is normal at 0.65. Blood cultures are negative to date; initial U/S shows lactobacillus. She is generally calm and cooperative. . Family/friend interactions Call to Eugenio Ralph; voice message left stating no acute changes but that she does appear to be generally comfortable. . Advance Directives Living Will: Never completed Health Care Surrogate: Never completed Durable Power of Human Capital Analyst: Completed, but not made available Advance Directive Specifics Health Care Surrogate(s): reports he is the designated health care surrogate; paperwork pending Objective Vital Signs Date Time Temp Pulse Resp B/P (MAP) Pulse Ox O2 Delivery O2 Flow Rate FiO2 06/02/17 12:00 96.5 75 17 111/65 (80) 92 06/02/17 08:00 97.3 94 18 103/63 (76) 97 06/02/17 08:00 69 06/02/17 04:55 94 Nasal Cannula 2.00 06/02/17 04:00 95.9 78 16 108/65 (79) 97 06/02/17 01:18 91 06/02/17 00:00 95.4 77 16 118/64 (82) 97 06/01/17 22:00 80 06/01/17 20:19 97 Nasal Cannula 2.00 06/01/17 20:00 85 06/01/17 20:00 97.9 85 24 109/64 (79) 99 06/01/17 18:00 92 06/01/17 16:00 98.6 86 21 100/56 (71) 93 06/01/17 16:00 86 06/01/17 14:00 95 Intake & Output 06/02/17 06/02/17 07:00 19:00 Intake Total 0 ml Balance 0 ml Intake Oral 0 ml # Voids 2 # Bowel Movements 3 Physical Exam CONSTITUTIONAL/GENERAL: This is an adequately nourished patient, in no apparent distress, resting with eyes closed. She does open eyes and visually engage in response to her name. TUBES/LINES/DRAINS: PIV; Valdovinos catheter; SCDs SKIN: No jaundice, rashes, or lesions. . No wounds seen anteriorly. Skin temperature appropriate. Not diaphoretic. Mild general pallor HEAD: Atraumatic. Normocephalic. EYES: Pupils equal and round and reactive. Extraocular motions intact. No scleral icterus. No injection or drainage. Conjunctivae pale ENT: Mildly [place]. Nose without bleeding or purulent drainage. Throat without visible erythema, exudates, masses, or lesions. Adequate dentition. Mucosa pink and moist CARDIOVASCULAR: Generally regular rate and rhythm without murmurs, gallops, or rubs. No JVD. Peripheral pulses symmetric. RESPIRATORY/CHEST: Symmetric, unlabored respirations. Harsh rhonchi bilaterally , worse on right side; isolated wheezes persist GASTROINTESTINAL: Abdomen soft, non-tender, nondistended.. Bowel sounds active. GENITOURINARY: Without palpable bladder distension. MUSCULOSKELETAL: Extremities without clubbing, cyanosis, or edema. No joint tenderness or effusion noted. No calf tenderness. No mottling or clubbing. NEUROLOGICAL: Drowsy but rousable; Motor and sensory grossly within normal limits. Follows some simple commands. Spontaneous and purposeful movement x 4; confused but mostly cooperative PSYCHIATRIC: Slightly more interactive today; oriented x 1 . . Diagnostic Tests Laboratory Laboratory Tests Test 05/31/17 13:30 05/31/17 13:31 05/31/17 13:32 05/31/17 17:16 White Blood Count 6.6 TH/MM3 (4.0-11.0) Red Blood Count 3.74 MIL/MM3 (4.00-5.30) Hemoglobin 9.5 GM/DL (11.6-15.3) Hematocrit 30.0 % (35.0-46.0) Mean Corpuscular Volume 80.2 FL (80.0-100.0) Mean Corpuscular Hemoglobin 25.4 PG (27.0-34.0) Mean Corpuscular Hemoglobin Concent 31.7 % (32.0-36.0) Red Cell Distribution Width 15.3 % (11.6-17.2) Platelet Count 266 TH/MM3 (150-450) Mean Platelet Volume 8.8 FL (7.0-11.0) Neutrophils (%) (Auto) 68.0 % (16.0-70.0) Lymphocytes (%) (Auto) 19.0 % (9.0-44.0) Monocytes (%) (Auto) 12.1 % (0.0-8.0) Eosinophils (%) (Auto) 0.4 % (0.0-4.0) Basophils (%) (Auto) 0.5 % (0.0-2.0) Neutrophils # (Auto) 4.5 TH/MM3 (1.8-7.7) Lymphocytes # (Auto) 1.3 TH/MM3 (1.0-4.8) Monocytes # (Auto) 0.8 TH/MM3 (0-0.9) Eosinophils # (Auto) 0.0 TH/MM3 (0-0.4) Basophils # (Auto) 0.0 TH/MM3 (0-0.2) CBC Comment DIFF FINAL Differential Comment Blood Urea Nitrogen 42 MG/DL (7-18) Creatinine 1.76 MG/DL (0.50-1.00) Random Glucose 135 MG/DL (74-106) Total Protein 5.9 GM/DL (6.4-8.2) Albumin 2.4 GM/DL (3.4-5.0) Calcium Level 8.0 MG/DL (8.5-10.1) Alkaline Phosphatase 161 U/L (45-117) Aspartate Amino Transf (AST/SGOT) 44 U/L (15-37) Alanine Aminotransferase (ALT/SGPT) 17 U/L (10-53) Total Bilirubin 0.3 MG/DL (0.2-1.0) Sodium Level 142 MEQ/L (136-145) Potassium Level 4.0 MEQ/L (3.5-5.1) Chloride Level 110 MEQ/L (98-107) Carbon Dioxide Level 21.4 MEQ/L (21.0-32.0) Anion Gap 11 MEQ/L (5-15) Estimat Glomerular Filtration Rate 28 ML/MIN (>89) Urine Color YELLOW (YELLW/STRAW) Urine Turbidity CLOUDY (CLEAR) Urine pH 5.5 (5.0-8.5) Urine Specific [place] 1.025 (1.002-1.035) Urine Protein 30 mg/dL (NEG-TRACE) Urine Glucose (UA) NEG mg/dL (NEG) Urine Ketones NEG mg/dL (NEG) Urine Occult Blood NEG (NEG) Urine Nitrite NEG (NEG) Urine Bilirubin NEG (NEG) Urine Urobilinogen 2.0 MG/DL (LESS THAN Urine Leukocyte Esterase NEG (NEG) Urine RBC 2 /hpf (0-3) Urine WBC 3 /hpf (0-5) Urine Squamous Epithelial Cells 4 /hpf (0-5) Urine Bacteria MANY /hpf (NONE) Urine Hyaline Casts 28 /lpf (RARE) Urine Granular Casts 64 /lpf (NONE) Urine Mucus MANY /lpf (OCC) Microscopic Urinalysis Comment CULTURE INDICATED Lactic Acid Level 3.1 mmol/L (0.4-2.0) 1.1 mmol/L (0.4-2.0) Prothrombin Time 11.3 SEC (9.8-11.6) Prothromb Time International Ratio 1.1 RATIO Activated Partial Thromboplast Time 28.0 SEC (24.3-30.1) Nasal Screen MRSA (PCR) MRSA NOT DETECTED (NOT Test 06/01/17 00:10 06/01/17 04:35 06/02/17 06:48 Hemoglobin 9.3 GM/DL (11.6-15.3) 9.3 GM/DL (11.6-15.3) 9.7 GM/DL (11.6-15.3) Hematocrit 29.3 % (35.0-46.0) 29.2 % (35.0-46.0) 30.7 % (35.0-46.0) White Blood Count 8.2 TH/MM3 (4.0-11.0) 6.9 TH/MM3 (4.0-11.0) Red Blood Count 3.68 MIL/MM3 (4.00-5.30) 3.78 MIL/MM3 (4.00-5.30) Mean Corpuscular Volume 79.3 FL (80.0-100.0) 81.2 FL (80.0-100.0) Mean Corpuscular Hemoglobin 25.2 PG (27.0-34.0) 25.5 PG (27.0-34.0) Mean Corpuscular Hemoglobin Concent 31.8 % (32.0-36.0) 31.5 % (32.0-36.0) Red Cell Distribution Width 14.9 % (11.6-17.2) 15.4 % (11.6-17.2) Platelet Count 264 TH/MM3 (150-450) 219 TH/MM3 (150-450) Mean Platelet Volume 8.3 FL (7.0-11.0) 8.7 FL (7.0-11.0) Blood Urea Nitrogen 25 MG/DL (7-18) 16 MG/DL (7-18) Creatinine 0.78 MG/DL (0.50-1.00) 0.65 MG/DL (0.50-1.00) Random Glucose 77 MG/DL (74-106) 61 MG/DL (74-106) Calcium Level 8.0 MG/DL (8.5-10.1) 8.1 MG/DL (8.5-10.1) Sodium Level 145 MEQ/L (136-145) 146 MEQ/L (136-145) Potassium Level 4.1 MEQ/L (3.5-5.1) 3.8 MEQ/L (3.5-5.1) Chloride Level 116 MEQ/L (98-107) 115 MEQ/L (98-107) Carbon Dioxide Level 19.1 MEQ/L (21.0-32.0) 20.0 MEQ/L (21.0-32.0) Anion Gap 10 MEQ/L (5-15) 11 MEQ/L (5-15) Estimat Glomerular Filtration Rate 71 ML/MIN (>89) 88 ML/MIN (>89) Result Diagram: 06/02/17 0648 06/02/17 0648 Microbiology Microbiology Date/Time Source Procedure Growth Status 05/31/17 13:35 Blood Peripheral Aerobic Blood Culture - Preliminary NO GROWTH IN 2 DAYS Resulted 05/31/17 13:35 Blood Peripheral Anaerobic Blood Culture - Preliminary NO GROWTH IN 2 DAYS Resulted 05/31/17 13:25 Blood Peripheral Aerobic Blood Culture - Preliminary NO GROWTH IN 2 DAYS Resulted 05/31/17 13:25 Blood Peripheral Anaerobic Blood Culture - Preliminary NO GROWTH IN 2 DAYS Resulted 05/31/17 13:31 Urine Catheterized Urine Legionella Antigen - Final PRESUMPTIVE NEGATIVE FOR LEGIONELLA P... Complete 05/31/17 13:31 Urine Catheterized Urine Streptococcus pneumoniae Antigen (M - Final PRESUMPTIVE NEGATIVE FOR STREPTOCOCCU... Complete 05/31/17 13:31 Urine Clean Catch Urine Culture - Final Lactobacillus Species Complete Procedures Right subclavian central line placed 05/31/17 Central line d/c'd 06/01/17 Assessment and Plan Disease Oriented Problem List: (1) Dementia Comment: First noted by family in 2013; pace of decline has accelerated over the past few months . (2) Weakness Comment: Had become unable to ambulate at home, needed to be picked up out of bed to chair; unlikely to resume ambulation . (3) Pneumonia Comment: Continuing IV antibiotics . Symptom Scale: (1) Dyspnea 0-10 Scale: Unable to quantify (2) Debility 0-10 Scale: Unable to quantify Pertinent Non-Medical Issues Psychosocial:She was born in [place]; to her current Eugenio for 60 years. They had four children; one is ; a son Phuc lives in [place]. . Spiritual: Was a member of the [employer]; was [facility] until progression of her illness; bilingual speech language pathologist services declined at this time Legal: She is unable to participate in medical decision making and it is highly unlikely that she will regain the ability to make meaningful decisions regarding her medical care. Eugenio reports that he is her designated health care surrogate; paperwork pending. Per [place] statute, in the absence of written advance directives, decision making would fall to her who verbalizes understanding and willingness to accept this role. Ethical issues impacting care:none identified . Important Contacts Spouse Eugenio Ralph [phone] . Prognosis Given history of Alzheimer's dementia, she remains at risk for further clinical decline and hospitalization. Family expresses strong preference that she return home with hospice services with comfort-oriented goals of care. . . Code Status: No Code Plan * DECISION MAKER: Eugenio Ralph [phone]. * NO CODE * GOALS OF CARE: Patient is currently enrolled in [facility]. Family hoping to take her home once antibiotic therapy is optimized to resume comfort- oriented care. * SYMPTOMS: debility - continue bedrest; unlikely to be successful with Physical Therapy; dysphasia - she is slightly more interactive this afternoon; given her history this is likely a transient occurrence; Dyspnea -- high risk for dyspnea given pneumonia and decreased mobility; oxygen saturations slightly lower with increased rhonchi and persistent harsh cough; she is not using accessory muscles nor exhibiting overt signs of distress at this time * Palliative care contact information provided * Palliative care will continue to follow to assist with communication and clarification of treatment goals as needed. * . Time Spent Total Floor Time (mins): 22 (Total time spent to include chart review; physical examination and discussion with patient and followup with family) >50% Counseling/Coord of Care: No Attestation To help prompt me to consider important information that might be impacting today's encounter and assessment, information from prior notes written by myself or my colleagues may have been "brought forward" into today's note. My signature on this note, however, is an attestation that I personally performed the exam, history, and/or decision-making noted today, and, unless otherwise indicated, the interactions with patient, family, and staff as well as the review of records all occurred today. I also attest that the listed assessment and stated plan reflect my best clinical judgment today based on the combination of historical information, prior notes, and today's exam/ interactions. When time spent is documented, it refers only to time spent today by the signer, or if indicated, combined time spent today by collaborating physician/nurse practitioner. . Lorena Johnson Jun 02, 2017 14:08
[2017-06-02] MEDS: cefTRIAXone INJ 2,000 MG in SODIUM CHLORIDE 0.9% INJ 100 ML IV SCH (14:40)
[2017-06-02] MEDS: AZITHROMYCIN INJ 500 MG in SODIUM CHLOR 0.9% 250 ML INJ 250 ML IV SCH (14:41)
--- NOTE | 2017-06-02 17:38 | HHI.PR ---
Subjective Remarks Patient is currently on restraints. When I come closer to talk to her got very agiated and yelled "stay away from me ", she also tried to slap me. Objective Vitals Vital Signs Date Time Temp Pulse Resp B/P (MAP) Pulse Ox O2 Delivery O2 Flow Rate FiO2 06/02/17 16:00 97.4 89 18 125/84 (98) 95 06/02/17 16:00 67 06/02/17 14:00 69 06/02/17 12:00 68 06/02/17 12:00 96.5 75 17 111/65 (80) 92 06/02/17 10:00 69 06/02/17 08:00 97.3 94 18 103/63 (76) 97 06/02/17 08:00 69 06/02/17 04:55 94 Nasal Cannula 2.00 06/02/17 04:00 95.9 78 16 108/65 (79) 97 06/02/17 01:18 91 06/02/17 00:00 95.4 77 16 118/64 (82) 97 06/01/17 22:00 80 06/01/17 20:19 97 Nasal Cannula 2.00 06/01/17 20:00 85 06/01/17 20:00 97.9 85 24 109/64 (79) 99 06/01/17 18:00 92 I/O 06/01/17 06/01/17 06/01/17 06/02/17 06/02/17 06/02/17 07:00 15:00 23:00 07:00 15:00 23:00 Intake Total 100 ml 181 ml 1737 ml 0 ml Output Total 800 ml 200 ml Balance -700 ml 181 ml 1537 ml 0 ml Intake Oral 0 ml 0 ml IV Total 100 ml 181 ml 1737 ml Output Urine Total 800 ml 200 ml # Voids 2 # Bowel Movements 0 1 3 Result Diagram: 06/02/17 0648 06/02/17 0648 Imaging Last Impressions Chest X-Ray 05/31/17 1320 Signed Impressions: Service Date/Time: Wednesday, May 31, 2017 13:43 - CONCLUSION: 1. Right lower lobe moderate-sized area of consolidation versus atelectasis. 2. Right subclavian central venous catheter in place. Hima Lo MD Reviewed by me. Objective Remarks GENERAL: Frail elderly female, lying in bed, moderately agitated Patient agitated refusing exam. Medications and IVs Current Medications Medications (Trade) Dose Ordered Sig/Ayana Route Start Time Stop Time Status Last Admin Sodium Chloride 1,000 ml @ 75 mls/hr [id number] IV 05/31/17 15:00 06/02/17 08:55 (NS Flush) 2 ml UNSCH PRN IV FLUSH 05/31/17 14:45 (NS Flush) 2 ml BID IV FLUSH 05/31/17 21:00 06/02/17 08:54 (Duoneb Neb) 1 ampule Q2HR NEB PRN INH 05/31/17 14:45 06/02/17 04:55 (Heparin Inj) 5,000 units Q8H SQ 05/31/17 16:00 Future Hold 05/31/17 19:06 Miscellaneous Information 1 Q361D XX 05/31/17 14:45 (Chlorhexidine 2% Cloth) 3 pack Taper DAILY@04 TOP 06/01/17 04:00 05/28/18 03:59 06/01/17 02:00 (Chlorhexidine 2% Cloth) 3 pack UNSCH PRN TOP 05/31/17 14:45 (Annmarie-Colace) 1 tab BID PO 05/31/17 21:00 06/02/17 08:53 (Milk Of Magnprosper Liq) 30 ml Q12H PRN PO 05/31/17 14:45 Ceftriaxone Sodium 2000 mg/ Sodium Chloride 100 ml @ 200 mls/hr Q24H IV 06/01/17 15:00 06/02/17 14:40 Azithromycin 500 mg/Sodium Chloride 250 ml @ 250 mls/hr Q24H IV 06/01/17 16:00 06/02/17 14:41 (Protonix Inj) 40 mg Q12H IV PUSH 06/01/17 10:00 06/02/17 08:54 Urinary Catheter: No Vascular Central Line Catheter: No A/P Problem List: (1) Sepsis ICD Code: A41.9 - Sepsis, unspecified organism Status: Acute (2) Pneumonia ICD Code: J18.9 - Pneumonia, unspecified organism Status: Acute (3) Dementia ICD Code: F03.90 - Unspecified dementia without behavioral disturbance (4) Dyspnea ICD Code: R06.00 - Dyspnea, unspecified (5) Weakness ICD Code: R53.1 - Weakness (6) Debility ICD Code: R53.81 - Other malaise (7) UTI (urinary tract infection) ICD Code: N39.0 - Urinary tract infection, site not specified Assessment and Plan Assessment: This is a 77yF with end-stage Alzheimer's disease and Severe Sepsis , community acquired pneumonia, urinary tract infection, and ? GI bleed. Clinically improving. continue abx. decrease ivf. hgb serially have been negative. will transition to IV BID PPI. stable for transfer out of ICU. Severe Sepsis Community Acquired Pneumonia Urinary Tract Infection - Rocephin 2gm iv q24h - Azithromycin 500mg iv q24h - f/u culture data - 06/02 Switch IV fluids to LR, due to hyperchloremic metabolic acidosis. GI bleed - hold pharmacologic dvt prophylaxis - hgb remained stable. - sp Protonix drip - 06/02 consult GI. Continue oral PPI. end-stage Alzheimer's disease - agree with DNR, per patient's wishes - consult palliative care to assist with goals and decision making. Acute kidney injury- resolved. Dysphagia - speech to eval. Acute protein calorie malnutrition- moderate - Diet consult Agitation - 06/02 Soft restraints as needed. Will RX Seroquel 25 mg po bid and place on Haldol as needed. Hypernatremia - Mild with sodium of 146. Due to poor oral intake. As per records patient has been refusing oral fluids and medications - Continue to monitor BMP. SCDs IV BID PPI. Discharge Planning Continue to monitor in the medical floor. Problem Qualifiers (1) Sepsis: Qualified Codes: A41.9 - Sepsis, unspecified organism (2) Pneumonia: Qualified Codes: J18.1 - Lobar pneumonia, unspecified organism Ernesto Moncada MD Jun 02, 2017 17:38
[2017-06-02] MEDS ORDERED: HALOPERIDOL LACTATE 5 MG/ML AMP IM PRN (17:45)
[2017-06-02] MEDS: LACTATED RINGER'S 1000 ML INJ 1,000 ML IV SCH (17:45)
[2017-06-02] MEDS: QUEtiapine FUMARATE 25 MG TAB PO SCH (20:19)
[2017-06-03] VITALS: PULSE 91
[2017-06-03 07:20] LABS: HEMATOCRIT 30.1 % (35.0-46.0); HEMOGLOBIN 9.7 GM/DL (11.6-15.3); MEAN CELL VOLUME 79.2 FL (80.0-100.0); MEAN CORPUSCULAR HEMOGLOBIN 25.6 PG (27.0-34.0); MEAN CORPUSCULAR HGB CONC 32.3 % (32.0-36.0); MEAN PLATELET VOLUME 8.6 FL (7.0-11.0); PLATELET COUNT 259 TH/MM3 (150-450); RED CELL DISTRIBUTION WIDTH 14.8 % (11.6-17.2); WHITE BLOOD COUNT 6.1 TH/MM3 (4.0-11.0)
[2017-06-03 07:28] LABS: BICARBONATE 21.5 MEQ/L (21.0-32.0); CALCIUM 8.1 MG/DL (8.5-10.1); CREATININE 0.59 MG/DL (0.50-1.00); MAGNESIUM 1.6 MG/DL (1.5-2.5); PHOSPHORUS 1.7 MG/DL (2.5-4.9)
[2017-06-03] MEDS: RESP: ALBUTEROL 2.5 MG/IPRATROPIUM 0.5 MG NEB (PRN) INH ×2 (07:50→22:56)
[2017-06-03 08:00] VITALS: BP 127/72; PULSE 95; RESP 20; TEMP 96.6; O2SAT 92
[2017-06-03] MEDS: DOCUSATE SODIUM 50 MG/SENNA 8.6 MG TAB PO SCH ×2 (09:00→20:35)
[2017-06-03] MEDS: QUEtiapine FUMARATE 25 MG TAB PO SCH ×3 (09:50→22:44)
[2017-06-03] MEDS: PANTOPRAZOLE SODIUM 40 MG VIAL IV PUSH SCH ×2 (09:50→20:34)
[2017-06-03] MEDS: SODIUM CHLORIDE 0.9% FLUSH 10 ML FLUSH IV FLUSH SCH ×2 (09:51→20:35)
[2017-06-03] MEDS: LACTATED RINGER'S 1000 ML INJ 1,000 ML IV SCH ×2 (09:52→20:25)
--- NOTE | 2017-06-03 10:25 | HHI.PR ---
Subjective Remarks PAtient still on restraints. As per RN patient is hungry and swallowing well. awake. Not responding to questions Objective Vitals Vital Signs Date Time Temp Pulse Resp B/P (MAP) Pulse Ox O2 Delivery O2 Flow Rate FiO2 06/03/17 08:00 96.6 95 20 127/72 (90) 92 06/03/17 00:00 91 06/02/17 20:17 Nasal Cannula 2.00 06/02/17 20:00 88 06/02/17 18:52 68 06/02/17 17:35 77 06/02/17 16:00 97.4 89 18 125/84 (98) 95 06/02/17 16:00 67 06/02/17 14:00 69 06/02/17 12:00 68 06/02/17 12:00 96.5 75 17 111/65 (80) 92 I/O 06/02/17 06/02/17 06/02/17 06/03/17 06/03/17 06/03/17 07:00 15:00 23:00 07:00 15:00 23:00 Intake Total 0 ml 950 ml 250 ml 0 ml Output Total 325 ml Balance 0 ml 950 ml -75 ml 0 ml Intake Oral 0 ml 0 ml 0 ml IV Total 950 ml 250 ml Output Urine Total 325 ml # Voids 2 4 # Bowel Movements 3 1 4 Result Diagram: 06/03/17 0611 06/03/17 0611 Imaging Last Impressions Chest X-Ray 05/31/17 1320 Signed Impressions: Service Date/Time: Wednesday, May 31, 2017 13:43 - CONCLUSION: 1. Right lower lobe moderate-sized area of consolidation versus atelectasis. 2. Right subclavian central venous catheter in place. Hima Lo MD Objective Remarks GENERAL: Frail elderly female, lying in bed, moderately agitated Patient agitated refusing exam. Medications and IVs Current Medications Medications (Trade) Dose Ordered Sig/Ayana Route Start Time Stop Time Status Last Admin (NS Flush) 2 ml UNSCH PRN IV FLUSH 05/31/17 14:45 (NS Flush) 2 ml BID IV FLUSH 05/31/17 21:00 06/03/17 09:51 (Duoneb Neb) 1 ampule Q2HR NEB PRN INH 05/31/17 14:45 06/03/17 07:50 (Heparin Inj) 5,000 units Q8H SQ 05/31/17 16:00 Future Hold 05/31/17 19:06 Miscellaneous Information 1 Q361D XX 05/31/17 14:45 (Chlorhexidine 2% Cloth) 3 pack Taper DAILY@04 TOP 06/01/17 04:00 05/28/18 03:59 06/01/17 02:00 (Chlorhexidine 2% Cloth) 3 pack UNSCH PRN TOP 05/31/17 14:45 (Annmarie-Colace) 1 tab BID PO 05/31/17 21:00 06/02/17 08:53 (Milk Of Magnprosper Liq) 30 ml Q12H PRN PO 05/31/17 14:45 Ceftriaxone Sodium 2000 mg/ Sodium Chloride 100 ml @ 200 mls/hr Q24H IV 06/01/17 15:00 06/02/17 14:40 Azithromycin 500 mg/Sodium Chloride 250 ml @ 250 mls/hr Q24H IV 06/01/17 16:00 06/02/17 14:41 (Protonix Inj) 40 mg Q12H IV PUSH 06/01/17 10:00 06/03/17 09:50 (SEROquel) 25 mg BID PO 06/02/17 21:00 06/03/17 09:50 (Haldol Inj) 2 mg Q4H PRN IM 06/02/17 17:45 06/02/17 20:18 Lactated Ringer's 1,000 ml @ 75 mls/hr [id number] IV 06/02/17 17:45 06/03/17 09:52 A/P Problem List: (1) Sepsis ICD Code: A41.9 - Sepsis, unspecified organism Status: Acute (2) Pneumonia ICD Code: J18.9 - Pneumonia, unspecified organism Status: Acute (3) Dementia ICD Code: F03.90 - Unspecified dementia without behavioral disturbance (4) Dyspnea ICD Code: R06.00 - Dyspnea, unspecified (5) Weakness ICD Code: R53.1 - Weakness (6) Debility ICD Code: R53.81 - Other malaise (7) UTI (urinary tract infection) ICD Code: N39.0 - Urinary tract infection, site not specified Assessment and Plan Assessment: This is a 77yF with end-stage Alzheimer's disease and Severe Sepsis , community acquired pneumonia, urinary tract infection, and ? GI bleed. Clinically improving. continue abx. decrease ivf. hgb serially have been negative. will transition to IV BID PPI. stable for transfer out of ICU. Severe Sepsis Community Acquired Pneumonia Urinary Tract Infection - Rocephin 2gm iv q24h - Azithromycin 500mg iv q24h - f/u culture data - 06/02 Switch IV fluids to LR, due to hyperchloremic metabolic acidosis. - 06/03 Continuer LR, acidosis improving. GI bleed - hold pharmacologic dvt prophylaxis - hgb remained stable. - sp Protonix drip - 06/03 No evidence of GI bleed. Hb stable. Monitor cbc. end-stage Alzheimer's disease - agree with DNR, per patient's wishes - consult palliative care to assist with goals and decision making. Acute kidney injury- resolved. Dysphagia - Will start on pureed diet with thicken liquids. Acute protein calorie malnutrition- moderate - Dietitian consult. As per ICU physician note dietitian consulted but I do not see an order or diet evaluation. Will consult. Agitation - 06/02 Soft restraints as needed. Will RX Seroquel 25 mg po bid and place on Haldol as needed. - Still on restraints, Haldol administered last night. Will increase PM Hypernatremia - Mild with sodium of 146. Due to poor oral intake. As per records patient has been refusing oral fluids and medications - Continue to monitor BMP. - 06/03 Sodium 145 on LR, continue. Patient will be started on a diet. SCDs IV BID PPI. Discharge Planning Continue to monitor in the medical floor. Problem Qualifiers (1) Sepsis: Qualified Codes: A41.9 - Sepsis, unspecified organism (2) Pneumonia: Qualified Codes: J18.1 - Lobar pneumonia, unspecified organism Ernesto Moncada MD Jun 03, 2017 10:25
[2017-06-03 12:00] VITALS: BP 124/76; PULSE 115; RESP 20; TEMP 99.5; O2SAT 93
[2017-06-03] MEDS: cefTRIAXone INJ 2,000 MG in SODIUM CHLORIDE 0.9% INJ 100 ML IV SCH (14:52)
[2017-06-03] MEDS: AZITHROMYCIN INJ 500 MG in SODIUM CHLOR 0.9% 250 ML INJ 250 ML IV SCH (14:53)
[2017-06-03 16:00] VITALS: BP 119/71; PULSE 114; RESP 18; TEMP 101.4; O2SAT 92
--- NOTE | 2017-06-03 17:22 | HHI.HCPN ---
Reason for visit a. To assist with evaluation and management of symptoms including: dysphasia , debility b. To assist medical decision maker(s) with: better understanding of current medical conditions; weighing benefits/burdens of medical treatment options; making medical treatment decisions . Subjective/Interval History Patient seen in room 1705; no family present. D/w primary nurse, medical attending. s/p Transfer out of unit to regular medical floor. I voice male from patient has been requesting an update prior to my arrival on unit. I attempted to reach him after my exam voicemail left 2. Stable. Started on PO, good appetite today per nursing. Seroquel, PRN haldol have been added for some agitation. She has intermittently required restraints. CBC stable. H&H stable. Blood culture no growth to date. Still on 2 L nasal cannula O2 sats low 90s. Patient seen in room no visitors present. Nurse present for part of exam. She is awake though quite confused. She tells me she "needs help getting up out of here". She is not able to tell me where she is or where she wants going. Asked if she is hungry she says yes. Asked if she is having pain she does not answer. She does not answer other ROS questions, no apparent distress. Intermittently follows commands. She is moving all 4 extremities with fair strength. . Advance Directives Living Will: Never completed Health Care Surrogate: Never completed Durable Power of Photography Editor: Completed, but not made available Advance Directive Specifics Health Care Surrogate(s): reports he is the designated health care surrogate; paperwork pending Objective Vital Signs Date Time Temp Pulse Resp B/P (MAP) Pulse Ox O2 Delivery O2 Flow Rate FiO2 06/03/17 16:00 101.4 114 18 119/71 (87) 92 06/03/17 12:00 99.5 115 20 124/76 (92) 93 06/03/17 08:00 96.6 95 20 127/72 (90) 92 06/03/17 00:00 91 06/02/17 20:17 Nasal Cannula 2.00 06/02/17 20:00 88 06/02/17 18:52 68 06/02/17 17:35 77 Intake & Output 06/03/17 06/03/17 07:00 19:00 Intake Total 0 ml 240 ml Balance 0 ml 240 ml Intake Oral 0 ml 240 ml # Voids 4 4 # Bowel Movements 4 2 Physical Exam CONSTITUTIONAL/GENERAL: This is an adequately nourished patient, in no apparent distress, alert TUBES/LINES/DRAINS: PIV upper extremity; Valdovinos catheter; SCDs SKIN: No jaundice, rashes, or lesions. No wounds seen anteriorly. Skin warm / dry ENT: Mildly [place]. Nose without bleeding or purulent drainage. CARDIOVASCULAR: regular rate and rhythm no murmur. No JVD. Peripheral pulses symmetric. RESPIRATORY/CHEST: Symmetric, unlabored respirations. On 2 L nasal cannula. Faint scattered rhonchi. Does not inspire deeply to command. GASTROINTESTINAL: Abdomen soft, non-tender, nondistended. Bowel sounds active. GENITOURINARY: Without palpable bladder distension. MUSCULOSKELETAL: Extremities without clubbing, cyanosis, or edema. No joint tenderness or effusion noted. No calf tenderness. No mottling or clubbing. NEUROLOGICAL: Alert, confused. Intermittently follows commands. Moving all 4 extremities with fair strength. PSYCHIATRIC: No apparent hallucinations no agitation during my exam . . Diagnostic Tests Laboratory Laboratory Tests Test 05/31/17 17:16 06/01/17 00:10 06/01/17 04:35 06/02/17 06:48 Prothrombin Time 11.3 SEC (9.8-11.6) Prothromb Time International Ratio 1.1 RATIO Activated Partial Thromboplast Time 28.0 SEC (24.3-30.1) Nasal Screen MRSA (PCR) MRSA NOT DETECTED (NOT Lactic Acid Level 1.1 mmol/L (0.4-2.0) Hemoglobin 9.3 GM/DL (11.6-15.3) 9.3 GM/DL (11.6-15.3) 9.7 GM/DL (11.6-15.3) Hematocrit 29.3 % (35.0-46.0) 29.2 % (35.0-46.0) 30.7 % (35.0-46.0) White Blood Count 8.2 TH/MM3 (4.0-11.0) 6.9 TH/MM3 (4.0-11.0) Red Blood Count 3.68 MIL/MM3 (4.00-5.30) 3.78 MIL/MM3 (4.00-5.30) Mean Corpuscular Volume 79.3 FL (80.0-100.0) 81.2 FL (80.0-100.0) Mean Corpuscular Hemoglobin 25.2 PG (27.0-34.0) 25.5 PG (27.0-34.0) Mean Corpuscular Hemoglobin Concent 31.8 % (32.0-36.0) 31.5 % (32.0-36.0) Red Cell Distribution Width 14.9 % (11.6-17.2) 15.4 % (11.6-17.2) Platelet Count 264 TH/MM3 (150-450) 219 TH/MM3 (150-450) Mean Platelet Volume 8.3 FL (7.0-11.0) 8.7 FL (7.0-11.0) Blood Urea Nitrogen 25 MG/DL (7-18) 16 MG/DL (7-18) Creatinine 0.78 MG/DL (0.50-1.00) 0.65 MG/DL (0.50-1.00) Random Glucose 77 MG/DL (74-106) 61 MG/DL (74-106) Calcium Level 8.0 MG/DL (8.5-10.1) 8.1 MG/DL (8.5-10.1) Sodium Level 145 MEQ/L (136-145) 146 MEQ/L (136-145) Potassium Level 4.1 MEQ/L (3.5-5.1) 3.8 MEQ/L (3.5-5.1) Chloride Level 116 MEQ/L (98-107) 115 MEQ/L (98-107) Carbon Dioxide Level 19.1 MEQ/L (21.0-32.0) 20.0 MEQ/L (21.0-32.0) Anion Gap 10 MEQ/L (5-15) 11 MEQ/L (5-15) Estimat Glomerular Filtration Rate 71 ML/MIN (>89) 88 ML/MIN (>89) Test 06/03/17 06:11 White Blood Count 6.1 TH/MM3 (4.0-11.0) Red Blood Count 3.80 MIL/MM3 (4.00-5.30) Hemoglobin 9.7 GM/DL (11.6-15.3) Hematocrit 30.1 % (35.0-46.0) Mean Corpuscular Volume 79.2 FL (80.0-100.0) Mean Corpuscular Hemoglobin 25.6 PG (27.0-34.0) Mean Corpuscular Hemoglobin Concent 32.3 % (32.0-36.0) Red Cell Distribution Width 14.8 % (11.6-17.2) Platelet Count 259 TH/MM3 (150-450) Mean Platelet Volume 8.6 FL (7.0-11.0) Blood Urea Nitrogen 13 MG/DL (7-18) Creatinine 0.59 MG/DL (0.50-1.00) Random Glucose 69 MG/DL (74-106) Calcium Level 8.1 MG/DL (8.5-10.1) Phosphorus Level 1.7 MG/DL (2.5-4.9) Magnesium Level 1.6 MG/DL (1.5-2.5) Sodium Level 145 MEQ/L (136-145) Potassium Level 3.6 MEQ/L (3.5-5.1) Chloride Level 113 MEQ/L (98-107) Carbon Dioxide Level 21.5 MEQ/L (21.0-32.0) Anion Gap 11 MEQ/L (5-15) Estimat Glomerular Filtration Rate 98 ML/MIN (>89) Result Diagram: 06/03/17 0611 06/03/17 0611 Microbiology Microbiology Date/Time Source Procedure Growth Status 05/31/17 13:35 Blood Peripheral Aerobic Blood Culture - Preliminary NO GROWTH IN 3 DAYS Resulted 05/31/17 13:35 Blood Peripheral Anaerobic Blood Culture - Preliminary NO GROWTH IN 3 DAYS Resulted 05/31/17 13:31 Urine Catheterized Urine Legionella Antigen - Final PRESUMPTIVE NEGATIVE FOR LEGIONELLA P... Complete 05/31/17 13:31 Urine Catheterized Urine Streptococcus pneumoniae Antigen (M - Final PRESUMPTIVE NEGATIVE FOR STREPTOCOCCU... Complete Imaging Last Impressions Chest X-Ray 05/31/17 1320 Signed Impressions: Service Date/Time: Wednesday, May 31, 2017 13:43 - CONCLUSION: 1. Right lower lobe moderate-sized area of consolidation versus atelectasis. 2. Right subclavian central venous catheter in place. Hima Lo MD Procedures Right subclavian central line placed 05/31/17 Central line d/c'd 06/01/17 Assessment and Plan Disease Oriented Problem List: (1) Dementia Comment: First noted by family in 2013; pace of decline has accelerated over the past few months . (2) Weakness Comment: Had become unable to ambulate at home, needed to be picked up out of bed to chair; unlikely to resume ambulation . (3) Pneumonia Comment: Continuing IV antibiotics . Symptom Scale: (1) Dyspnea 0-10 Scale: Unable to quantify (2) Debility 0-10 Scale: Unable to quantify Pertinent Non-Medical Issues Psychosocial:She was born in [place]; to her current Eugenio for 60 years. They had four children; one is ; a son Phuc lives in [place]. . Spiritual: Was a member of the [employer]; was attending [facility] services until progression of her illness; ripening room hand services declined at this time Legal: She is unable to participate in medical decision making and it is highly unlikely that she will regain the ability to make meaningful decisions regarding her medical care. Eugenio reports that he is her designated health care surrogate; paperwork pending. Per [place] statute, in the absence of written advance directives, decision making would fall to her who verbalizes understanding and willingness to accept this role. Ethical issues impacting care:none identified . Important Contacts Spouse Eugenio Ralph [phone] . Prognosis Given history of Alzheimer's dementia, she remains at risk for further clinical decline and hospitalization. Family expresses strong preference that she return home with hospice services with comfort-oriented goals of care. . . Code Status: No Code Plan * DECISION MAKER: Eugenio Ralph [phone]. * NO CODE * GOALS OF CARE: Patient is currently enrolled in [facility]. Family hoping to take her home once antibiotic therapy is optimized to resume comfort- oriented care. 06/03/17 VM LEFT FOR . 1700---->>he later called back, provided update on conditions/tx in place. He again expresses desire to complete ABX and pursue d/c back home w/ [facility] hospice services. * SYMPTOMS: debility - continue bedrest; unlikely to be successful with Physical Therapy; dysphasia - she is more alert tolerating pured diet per nursing.; Dyspnea -- high risk for dyspnea given pneumonia and decreased mobility; oxygen sats in the 90s, she is not using accessory muscles nor exhibiting overt signs of distress at this time * Palliative care contact information provided * Palliative care will continue to follow to assist with communication and clarification of treatment goals as needed. . Attestation To help prompt me to consider important information that might be impacting today's encounter and assessment, information from prior notes written by myself or my colleagues may have been "brought forward" into today's note. My signature on this note, however, is an attestation that I personally performed the exam, history, and/or decision-making noted today, and, unless otherwise indicated, the interactions with patient, family, and staff as well as the review of records all occurred today. I also attest that the listed assessment and stated plan reflect my best clinical judgment today based on the combination of historical information, prior notes, and today's exam/ interactions. When time spent is documented, it refers only to time spent today by the signer, or if indicated, combined time spent today by collaborating physician/nurse practitioner. Sarah Murphy Jun 03, 2017 17:22
[2017-06-03] MEDS ORDERED: ACETAMINOPHEN 325 MG TAB PO PRN (19:00)
[2017-06-03 20:00] VITALS: BP 114/70; PULSE 105; RESP 24; TEMP 97.9; O2SAT 93
[2017-06-03] MEDS: CHLORHEXIDINE GLUCONATE 2 % 1 PACK (2 CLOTHS) TOP SCH (20:34)
[2017-06-03 23:45] VITALS: PULSE 111
[2017-06-04] VITALS (8 sets, daily range): BP systolic 100–123; BP diastolic 61–74; PULSE 87–107; RESP 18–24; TEMP 96.3–100; O2SAT 93–95
[2017-06-04 03:53] LABS: HEMOGLOBIN 9.1 GM/DL (11.6-15.3); MEAN CORPUSCULAR HEMOGLOBIN 25.4 PG (27.0-34.0); MEAN CORPUSCULAR HGB CONC 32.6 % (32.0-36.0); MEAN PLATELET VOLUME 8.1 FL (7.0-11.0); PLATELET COUNT 244 TH/MM3 (150-450); RED BLOOD COUNT 3.59 MIL/MM3 (4.00-5.30); RED CELL DISTRIBUTION WIDTH 14.7 % (11.6-17.2); WHITE BLOOD COUNT 6.4 TH/MM3 (4.0-11.0)
[2017-06-04 04:13] LABS: CALCIUM 8.3 MG/DL (8.5-10.1); CREATININE 0.65 MG/DL (0.50-1.00); MAGNESIUM 1.5 MG/DL (1.5-2.5); PHOSPHORUS 1.8 MG/DL (2.5-4.9)
[2017-06-04] MEDS: QUEtiapine FUMARATE 25 MG TAB PO SCH (08:56)
[2017-06-04] MEDS: DOCUSATE SODIUM 50 MG/SENNA 8.6 MG TAB PO SCH ×2 (08:57→20:26)
[2017-06-04] MEDS: SODIUM CHLORIDE 0.9% FLUSH 10 ML FLUSH IV FLUSH SCH ×2 (08:57→20:26)
[2017-06-04] MEDS: LACTATED RINGER'S 1000 ML INJ 1,000 ML IV SCH (08:57)
[2017-06-04] MEDS: PANTOPRAZOLE SODIUM 40 MG VIAL IV PUSH SCH (08:59)
--- NOTE | 2017-06-04 13:25 | HHI.HCPN ---
Reason for visit a. To assist with evaluation and management of symptoms including: dysphasia , debility b. To assist medical decision maker(s) with: better understanding of current medical conditions; weighing benefits/burdens of medical treatment options; making medical treatment decisions . Subjective/Interval History Patient seen in room 1705 for followup on discharge status; no family present. Spouse had left voice mail regarding possible plan for discharge; return call attempted; message left. She is quite drowsy today; still in restraints. She does rouse to vigorous stimulation and answers some simple questions; she denies discomfort but there is some audible wheezing noted. Lunch tray is at bedside; she demonstrates some purposeful movement but not consistently following commands today. She is cooperative when roused. Labs today demonstrate stable CBC; Hb 9.1; BMP shows mild hypokalemia at 2.1; creatinine remains good at 0.65. She continues to wear oxygen at 2 LPM. . Family/friend interactions Call placed to who is taking his mother to a doctor's appointment. Advance Directives Living Will: Never completed Health Care Surrogate: Never completed Durable Power of Shucker: Completed, but not made available Advance Directive Specifics Health Care Surrogate(s): reports he is the designated health care surrogate; paperwork pending Objective Vital Signs Date Time Temp Pulse Resp B/P (MAP) Pulse Ox O2 Delivery O2 Flow Rate FiO2 06/04/17 12:00 98.5 100 18 108/66 (80) 94 06/04/17 10:03 95 Nasal Cannula 2.00 06/04/17 08:00 98.5 87 18 100/62 (75) 93 06/04/17 04:00 98.8 98 22 100/61 (74) 93 06/04/17 00:00 100.0 103 24 117/69 (85) 93 06/03/17 23:45 111 06/03/17 20:00 97.9 105 24 114/70 (85) 93 06/03/17 16:00 101.4 114 18 119/71 (87) 92 Intake & Output 06/04/17 06/04/17 07:00 19:00 Intake Total 0 ml Balance 0 ml Intake Oral 0 ml # Voids 2 # Bowel Movements 0 Physical Exam CONSTITUTIONAL/GENERAL: This is an adequately nourished patient, in no apparent distress, quite drowsy but rousable TUBES/LINES/DRAINS: PIV x 2; PureWick catheter SKIN: No jaundice, rashes, or lesions. No wounds seen anteriorly. Skin warm / dryl complexion generally pale pink ENT: Mildly [place]. Nose without bleeding or purulent drainage. CARDIOVASCULAR: regular rate and rhythm no murmur. No JVD. Peripheral pulses symmetric. RESPIRATORY/CHEST: Symmetric, unlabored respirations. On 2 L nasal cannula. Bilateral expiratory wheezing . GASTROINTESTINAL: Abdomen soft, non-tender, nondistended. Bowel sounds active. GENITOURINARY: Without palpable bladder distension. MUSCULOSKELETAL: Extremities without clubbing, cyanosis, or edema. No joint tenderness or effusion noted. No calf tenderness. No mottling or clubbing. NEUROLOGICAL: Drowsy, confused. Intermittently follows commands. Moving all 4 extremities with fair strength. PSYCHIATRIC: No apparent hallucinations no agitation during my exam but mild irritability with continued stimulation . . Diagnostic Tests Laboratory Laboratory Tests Test 06/02/17 06:48 06/03/17 06:11 06/04/17 03:44 White Blood Count 6.9 TH/MM3 (4.0-11.0) 6.1 TH/MM3 (4.0-11.0) 6.4 TH/MM3 (4.0-11.0) Red Blood Count 3.78 MIL/MM3 (4.00-5.30) 3.80 MIL/MM3 (4.00-5.30) 3.59 MIL/MM3 (4.00-5.30) Hemoglobin 9.7 GM/DL (11.6-15.3) 9.7 GM/DL (11.6-15.3) 9.1 GM/DL (11.6-15.3) Hematocrit 30.7 % (35.0-46.0) 30.1 % (35.0-46.0) 28.0 % (35.0-46.0) Mean Corpuscular Volume 81.2 FL (80.0-100.0) 79.2 FL (80.0-100.0) 78.0 FL (80.0-100.0) Mean Corpuscular Hemoglobin 25.5 PG (27.0-34.0) 25.6 PG (27.0-34.0) 25.4 PG (27.0-34.0) Mean Corpuscular Hemoglobin Concent 31.5 % (32.0-36.0) 32.3 % (32.0-36.0) 32.6 % (32.0-36.0) Red Cell Distribution Width 15.4 % (11.6-17.2) 14.8 % (11.6-17.2) 14.7 % (11.6-17.2) Platelet Count 219 TH/MM3 (150-450) 259 TH/MM3 (150-450) 244 TH/MM3 (150-450) Mean Platelet Volume 8.7 FL (7.0-11.0) 8.6 FL (7.0-11.0) 8.1 FL (7.0-11.0) Blood Urea Nitrogen 16 MG/DL (7-18) 13 MG/DL (7-18) 12 MG/DL (7-18) Creatinine 0.65 MG/DL (0.50-1.00) 0.59 MG/DL (0.50-1.00) 0.65 MG/DL (0.50-1.00) Random Glucose 61 MG/DL (74-106) 69 MG/DL (74-106) 108 MG/DL (74-106) Calcium Level 8.1 MG/DL (8.5-10.1) 8.1 MG/DL (8.5-10.1) 8.3 MG/DL (8.5-10.1) Sodium Level 146 MEQ/L (136-145) 145 MEQ/L (136-145) 145 MEQ/L (136-145) Potassium Level 3.8 MEQ/L (3.5-5.1) 3.6 MEQ/L (3.5-5.1) 3.1 MEQ/L (3.5-5.1) Chloride Level 115 MEQ/L (98-107) 113 MEQ/L (98-107) 112 MEQ/L (98-107) Carbon Dioxide Level 20.0 MEQ/L (21.0-32.0) 21.5 MEQ/L (21.0-32.0) 25.0 MEQ/L (21.0-32.0) Anion Gap 11 MEQ/L (5-15) 11 MEQ/L (5-15) 8 MEQ/L (5-15) Estimat Glomerular Filtration Rate 88 ML/MIN (>89) 98 ML/MIN (>89) 88 ML/MIN (>89) Phosphorus Level 1.7 MG/DL (2.5-4.9) 1.8 MG/DL (2.5-4.9) Magnesium Level 1.6 MG/DL (1.5-2.5) 1.5 MG/DL (1.5-2.5) Result Diagram: 06/04/17 0344 06/04/17 0344 Procedures Right subclavian central line placed 05/31/17 Central line d/c'd 06/01/17 Assessment and Plan Disease Oriented Problem List: (1) Dementia Comment: First noted by family in 2013; pace of decline has accelerated over the past few months . (2) Weakness Comment: Had become unable to ambulate at home, needed to be picked up out of bed to chair; unlikely to resume ambulation . (3) Pneumonia Comment: Continuing IV antibiotics . Symptom Scale: (1) Dyspnea 0-10 Scale: Unable to quantify (2) Debility 0-10 Scale: Unable to quantify Pertinent Non-Medical Issues Psychosocial:She was born in [place]; to her current Eugenio for 60 years. They had four children; one is ; a son Phuc lives in [place]. . Spiritual: Was a member of the [employer] latter day; was attending [facility] clinician services until progression of her illness; contract administration specialist services declined at this time Legal: She is unable to participate in medical decision making and it is highly unlikely that she will regain the ability to make meaningful decisions regarding her medical care. Eugenio reports that he is her designated health care surrogate; paperwork pending. Per [place] statute, in the absence of written advance directives, decision making would fall to her who verbalizes understanding and willingness to accept this role. Ethical issues impacting care:none identified . Important Contacts Spouse Eugenio Ralph [phone] . Prognosis Given history of Alzheimer's dementia, she remains at risk for further clinical decline and hospitalization. Family expresses strong preference that she return home with hospice services with comfort-oriented goals of care. . . Code Status: No Code Plan * DECISION MAKER: Eugenio Ralph [phone]. * NO CODE * GOALS OF CARE: Patient is currently enrolled in [facility]. Family hoping to take her home once antibiotic therapy is optimized to resume comfort- oriented care. * SYMPTOMS: debility - continue bedrest; unlikely to be successful with Physical Therapy; dysphasia - she is more alert tolerating pured diet per nursing.; Dyspnea -- high risk for dyspnea given pneumonia and decreased mobility; consider attempting to wean to room air; if not possible, notify [facility] prior to patient's return home; family hoping to take her home on Monday 06/05. * Palliative care contact information provided * Palliative care will continue to follow to assist with communication and clarification of treatment goals as needed. . Attestation To help prompt me to consider important information that might be impacting today's encounter and assessment, information from prior notes written by myself or my colleagues may have been "brought forward" into today's note. My signature on this note, however, is an attestation that I personally performed the exam, history, and/or decision-making noted today, and, unless otherwise indicated, the interactions with patient, family, and staff as well as the review of records all occurred today. I also attest that the listed assessment and stated plan reflect my best clinical judgment today based on the combination of historical information, prior notes, and today's exam/ interactions. When time spent is documented, it refers only to time spent today by the signer, or if indicated, combined time spent today by collaborating physician/nurse practitioner. Lorena Johnson Jun 04, 2017 13:25
--- NOTE | 2017-06-04 13:47 | HHI.PR ---
Subjective Remarks Patient has a cough. She has no complaints. Mostly calm today. Has been sleeping. Objective Vitals Vital Signs Date Time Temp Pulse Resp B/P (MAP) Pulse Ox O2 Delivery O2 Flow Rate FiO2 06/04/17 12:00 98.5 100 18 108/66 (80) 94 06/04/17 10:03 95 Nasal Cannula 2.00 06/04/17 08:00 98.5 87 18 100/62 (75) 93 06/04/17 04:00 98.8 98 22 100/61 (74) 93 06/04/17 00:00 100.0 103 24 117/69 (85) 93 06/03/17 23:45 111 06/03/17 20:00 97.9 105 24 114/70 (85) 93 06/03/17 16:00 101.4 114 18 119/71 (87) 92 I/O 06/03/17 06/03/17 06/03/17 06/04/17 06/04/17 06/04/17 07:00 15:00 23:00 07:00 15:00 23:00 Intake Total 0 ml 240 ml 0 ml Balance 0 ml 240 ml 0 ml Intake Oral 0 ml 240 ml 0 ml # Voids 4 4 2 # Bowel Movements 4 2 0 Result Diagram: 06/04/17 0344 06/04/17 0344 Objective Remarks GENERAL: Elderly and frail female, demented, in no apparent distress. CARDIOVASCULAR: Normal rate and regular rhythm without murmurs, gallops, or rubs. RESPIRATORY: Good respiratory efforts. Faint diffuse rhonchi. GASTROINTESTINAL: Abdomen soft, non-tender, non-distended. MUSCULOSKELETAL: Extremities without cyanosis, or edema. NEURO: Awake and alert. Moves all ext x4 PSYCH: Calm A/P Problem List: (1) Sepsis ICD Code: A41.9 - Sepsis, unspecified organism Status: Acute (2) Pneumonia ICD Code: J18.9 - Pneumonia, unspecified organism Status: Acute (3) Dementia ICD Code: F03.90 - Unspecified dementia without behavioral disturbance (4) Dyspnea ICD Code: R06.00 - Dyspnea, unspecified (5) Weakness ICD Code: R53.1 - Weakness (6) Debility ICD Code: R53.81 - Other malaise (7) UTI (urinary tract infection) ICD Code: N39.0 - Urinary tract infection, site not specified Assessment and Plan 77 Y/O F with end-stage Alzheimer's disease and Severe Sepsis, community acquired pneumonia, urinary tract infection, and ? GI bleed. Clinically improving. Community Acquired Pneumonia Urinary Tract Infection - Transition to oral Levaquin today. Continue to monitor respiratory status. GI bleed - hold pharmacologic dvt prophylaxis - hgb remained stable. - sp Protonix drip. Transition to oral Protonix. - Discussed with the patient's at length. He does not want further GI workup. He understands that GI bleeding may recur. end-stage Alzheimer's disease - agree with DNR, per patient's family wishes. Her wants her to return home with hospice. Plan for discharge with hospice tomorrow. Acute kidney injury- resolved. Dysphagia - Pureed diet with thicken liquids. Acute protein calorie malnutrition- moderate - Dietitian consult. As per ICU physician note dietitian consulted but I do not see an order or diet evaluation. Will consult. Agitation - Continue Seroquel. Seems more sedated this morning. Decrease p.m. dose to 25 mg. - Has been requiring restraints. Wean off restraints as tolerated. SCDs PPI. Discussed with the patient is a very his goal is to have the patient return home with hospice. He does not want to pursue any further GI workup. He is currently at the doctor's office with is [id number] mother who had a fall. Discharge planning to home with hospice tomorrow morning. Wean off restraints. Encourage oral hydration. Transition to oral Levaquin. Colorectal electrolytes abnormalities. Discharge Planning Plan for discharge home with hospice tomorrow. Problem Qualifiers (1) Sepsis: Qualified Codes: A41.9 - Sepsis, unspecified organism (2) Pneumonia: Qualified Codes: J18.1 - Lobar pneumonia, unspecified organism Genna Hayden MD Jun 04, 2017 13:47
[2017-06-04] MEDS ORDERED: POTASSIUM CHLORIDE 25 MEQ EFFERVESCENT TAB PO ONE (15:00)
[2017-06-04] MEDS: RESP: ALBUTEROL 2.5 MG/IPRATROPIUM 0.5 MG NEB (PRN) INH (15:36)
[2017-06-04] MEDS ORDERED: QUEtiapine FUMARATE 25 MG TAB PO SCH (21:00)
[2017-06-05] VITALS (7 sets, daily range): BP systolic 97–125; BP diastolic 66–82; PULSE 84–106; RESP 20–24; TEMP 95.4–97.9; O2SAT 93–97
[2017-06-05] MEDS: CHLORHEXIDINE GLUCONATE 2 % 1 PACK (2 CLOTHS) TOP SCH (04:00)
[2017-06-05 05:53] LABS: HEMATOCRIT 30.5 % (35.0-46.0); HEMOGLOBIN 10.1 GM/DL (11.6-15.3); MEAN CELL VOLUME 77.9 FL (80.0-100.0); MEAN CORPUSCULAR HEMOGLOBIN 25.7 PG (27.0-34.0); MEAN PLATELET VOLUME 8.6 FL (7.0-11.0); PLATELET COUNT 223 TH/MM3 (150-450); RED BLOOD COUNT 3.91 MIL/MM3 (4.00-5.30); RED CELL DISTRIBUTION WIDTH 14.6 % (11.6-17.2); WHITE BLOOD COUNT 7.1 TH/MM3 (4.0-11.0)
[2017-06-05 06:16] LABS: BICARBONATE 25.1 MEQ/L (21.0-32.0); CALCIUM 8.2 MG/DL (8.5-10.1); CREATININE 0.52 MG/DL (0.50-1.00)
[2017-06-05] MEDS: DOCUSATE SODIUM 50 MG/SENNA 8.6 MG TAB PO SCH (08:06)
[2017-06-05] MEDS: SODIUM CHLORIDE 0.9% FLUSH 10 ML FLUSH IV FLUSH SCH (08:07)
[2017-06-05] MEDS: QUEtiapine FUMARATE 25 MG TAB PO SCH (08:07)
[2017-06-05] MEDS: RESP: ALBUTEROL 2.5 MG/IPRATROPIUM 0.5 MG NEB (PRN) INH (08:17)
[2017-06-05] MEDS ORDERED: PANTOPRAZOLE SOD 40 MG DELAYED RELEASE TAB PO SCH (09:00)
[2017-06-05] MEDS ORDERED: LEVOFLOXACIN 750 MG TAB PO SCH (10:00)
--- NOTE | 2017-06-05 10:54 | RADRPT ---
EXAM DATE/TIME: 06/05/2017 09:36 [facility] COMPARISON: CHEST SINGLE AP, May 31, 2017, 13:43. INDICATIONS : Cough. MEDICAL HISTORY : Hypertension. Hypercholesterolemia. Alzheimer's. SURGICAL HISTORY : Tonsillectomy. ENCOUNTER: Subsequent ACUITY: 4 - 6 days PAIN SCORE: Non-responsive. LOCATION: Bilateral chest FINDINGS: A single portable frontal view of the chest shows an area consolidation involving the right lung base which is unchanged from the prior exam. A focal consolidation is now seen within the peripheral aspe cts of the right apex. This is a new finding. Left lung is clear. No discrete effusions observed. Hea rt is normal in size. Bony structures are unremarkable. CONCLUSION: Unchanged right lower lobe infiltrate with new small consolidation involving the right apex. Infectio us etiology is suspected. Devin Harris Jr., MD on June 05, 2017 at 10:49 Board Certified Radiologist. This report was verified electronically.
[2017-06-05] MEDS ORDERED: PANT40TA3 PO (11:25)
[2017-06-05] MEDS ORDERED: LEVA750T9 PO (11:25)
--- NOTE | 2017-06-05 11:25 | HHI.DS ---
Discharge Summary Admission Date May 31, 2017 at 15:39 Discharge Date: Jun 05, 2017 Admitting Diagnosis hypotension, pneumonia, GI bleed (1) Sepsis ICD Code: A41.9 - Sepsis, unspecified organism Status: Acute (2) Pneumonia ICD Code: J18.9 - Pneumonia, unspecified organism Status: Acute (3) Dementia ICD Code: F03.90 - Unspecified dementia without behavioral disturbance (4) Dyspnea ICD Code: R06.00 - Dyspnea, unspecified (5) Weakness ICD Code: R53.1 - Weakness (6) Debility ICD Code: R53.81 - Other malaise (7) UTI (urinary tract infection) ICD Code: N39.0 - Urinary tract infection, site not specified Procedures None Brief History - From Admission History of present illness from the admitting physician This is a 77-year-old female with advanced end-stage Alzheimer's disease who lives at home with her who is her back end architect. She was brought in the emergency department with the complaints of presyncope. Due to her altered mental status, no additional information is obtainable from the patient. The ER physician contacted the who states that she is been having black tarry stools, and in addition she's been worsening [place] somnolent. In the emergency department, she was severely hypotensive with systolics in the 60s. She was given IV fluids. Her lactate was elevated with an elevated white count. Urinalysis is suggestive of UTI. Chest x-ray shows a right lower lobe consolidation consistent with community-acquired pneumonia. She was given aggressive fluid resuscitation and her vital signs improved. She is admitted for community acquired pneumonia, UTI, sepsis, possible GI bleed. On my values the patient, she is awake, but does not follow commands. Does not answer questions. Per reports from the ER physician and the , this is baseline for patient. CBC/BMP: 06/05/17 0330 06/05/17 0330 Significant Findings Laboratory Tests Test 06/03/17 06:11 06/04/17 03:44 06/05/17 03:30 Red Blood Count 3.80 MIL/MM3 (4.00-5.30) 3.59 MIL/MM3 (4.00-5.30) 3.91 MIL/MM3 (4.00-5.30) Hemoglobin 9.7 GM/DL (11.6-15.3) 9.1 GM/DL (11.6-15.3) 10.1 GM/DL (11.6-15.3) Hematocrit 30.1 % (35.0-46.0) 28.0 % (35.0-46.0) 30.5 % (35.0-46.0) Mean Corpuscular Volume 79.2 FL (80.0-100.0) 78.0 FL (80.0-100.0) 77.9 FL (80.0-100.0) Mean Corpuscular Hemoglobin 25.6 PG (27.0-34.0) 25.4 PG (27.0-34.0) 25.7 PG (27.0-34.0) Random Glucose 69 MG/DL (74-106) 108 MG/DL (74-106) Calcium Level 8.1 MG/DL (8.5-10.1) 8.3 MG/DL (8.5-10.1) 8.2 MG/DL (8.5-10.1) Phosphorus Level 1.7 MG/DL (2.5-4.9) 1.8 MG/DL (2.5-4.9) Chloride Level 113 MEQ/L (98-107) 112 MEQ/L (98-107) 108 MEQ/L (98-107) Potassium Level 3.1 MEQ/L (3.5-5.1) Estimat Glomerular Filtration Rate 88 ML/MIN (>89) Imaging Last Impressions Chest X-Ray 06/05/17 0000 Signed Impressions: Service Date/Time: Monday, June 05, 2017 09:36 - CONCLUSION: Unchanged right lower lobe infiltrate with new small consolidation involving the right apex. Infectious etiology is suspected. Devin Harris Jr., MD PE at Discharge GENERAL: Elderly and frail female, demented, in no apparent distress. CARDIOVASCULAR: Normal rate and regular rhythm without murmurs, gallops, or rubs. RESPIRATORY: Good respiratory efforts. Faint diffuse rhonchi. GASTROINTESTINAL: Abdomen soft, non-tender, non-distended. MUSCULOSKELETAL: Extremities without cyanosis, or edema. NEURO: Awake and alert. Moves all ext x4 PSYCH: Calm Pt update on day of discharge Patient remains ill. Still having issues with agitation requiring restraints. Respiratory status is slightly worse today. She is coughing more. I discussed her conditions with her . He states that her agitation has been ongoing for the past year. He understands that she may continue to decline at home. He wants her to come home with hospice and focus on comfort care. Hospital Course 77 Y/O F with end-stage Alzheimer's disease and Severe Sepsis, community acquired pneumonia, urinary tract infection, and ? GI bleed. The patient was admitted and treated with broad-spectrum antibiotics for pneumonia and UTI. Regarding the possible GI bleeding. After extensive discussion with her , he declined any further GI workup. Initially the patient improved but she continually became more agitated and required restraints. She regressed and mostly laid in bed, her pneumonia and respiratory status worsened. She refused to eat much. Given her advanced dementia, her ultimately wanted her to come home with hospice. This is appropriate given her condition. We discussed the possibility that she will continue to decline at home and hospice can provide comfort measures. Pt Condition on Discharge: Fair Discharge Disposition: Hospice/ Home Discharge Time: > 30 minutes Discharge Instructions DIET: Follow Instructions for: As Tolerated, No Restrictions Speech Therapy-Diet Recommends: Pureed, [place] Thickened Liquids Activities you can perform: Regular-No Restrictions New Medications: Oxygen (O2) (Oxygen (O2)) Device LITER HERNANDEZ.CANULA CONTINUOUS for Prevent Hypoxemia, #2 Oxygen Concentrator Portable Gaseous 2 L/min via Nasal Canula Continuous For 99 months Levofloxacin (Levaquin) 750 Mg Tablet 750 MG PO DAILY, #14 TAB Pantoprazole (Pantoprazole) 40 Mg Tab 40 MG PO DAILY, #30 TAB Continued Medications: Aspirin DR (Aspirin 81) 81 Mg Tabdr 81 MG PO DAILY, TAB 0 Refills Donepezil HCl (Aricept) 10 Mg Tablet 1 TAB PO DAILY Memantine (Namenda) 10 Mg Tab 10 MG PO DAILY for Alzheimer Disease, #30 TAB 0 Refills Quetiapine (Quetiapine) 100 Mg Tab 100 MG PO BID, #60 TAB 0 Refills Discontinued Medications: Lisinopril (Lisinopril) 5 Mg Tab 5 MG PO DAILY for Blood Pressure Management, #30 TAB 0 Refills Naproxen (Naproxen) 500 Mg Tab 500 MG PO BID, #60 TAB 0 Refills Genna Hayden MD Jun 05, 2017 11:25
[2017-06-05] MEDS ORDERED: OXYGENDME NAS.CANULA (12:36)
== END 2017-06-05 18:25 | disposition hospice, home (50) | DRG 871 ==
LOC: NEPE 13:05 → NEDA 15:39 → MERGE 15:39 → HIMW 16:25 → N07A 06-02
PROVIDERS: ADMIT Family Medicine; ATTEND Family Medicine
PROC: 0T9B70Z Drainage of Bladder with Drainage Device, Via Natural or Artificial Opening (ICD-10-PCS; principal; 2017-05-31)
DX: A41.9 Sepsis, unspecified organism (principal); J18.9 Pneumonia, unspecified organism; N17.9 Acute kidney failure, unspecified; E87.2 Acidosis; E87.0 Hyperosmolality and hypernatremia; E44.0 Moderate protein-calorie malnutrition; K92.2 Gastrointestinal hemorrhage, unspecified; E87.8 Other disorders of electrolyte and fluid balance, not elsewhere classified; N39.0 Urinary tract infection, site not specified; R65.20 Severe sepsis without septic shock; G30.9 Alzheimer's disease, unspecified; F02.80 Dementia in other diseases classified elsewhere, unspecified severity, without behavioral disturbance, psychotic disturbance, mood disturbance, and anxiety; E78.00 Pure hypercholesterolemia, unspecified; I10 Essential (primary) hypertension; M48.00 Spinal stenosis, site unspecified; R74.0 Nonspecific elevation of levels of transaminase and lactic acid dehydrogenase [LDH]; R13.10 Dysphagia, unspecified; H91.90 Unspecified hearing loss, unspecified ear; E87.6 Hypokalemia; Z51.5 Encounter for palliative care; Z66 Do not resuscitate; Z68.24 Body mass index [BMI] 24.0-24.9, adult; Z78.1 Physical restraint status
CPT/HCPCS: 51702; 71045; 80048; 80053; 81001; 83605; 83735; 84100; 85014; 85018; 85025; 85027; 85610; 85730; 87040; 87086; 87449; 87641; 93005; 94640; 94664; 94668; 96365; 96375; C9113; J0456; J0696; J1630; J1644; J2405; J7030; J7050; J7120